=== PATIENT | male | born 1990 | race Hispanic/Latino ===

== ENCOUNTER 2018-06-29 13:37 | Emergency (ER) | payer SELFPAY ==
--- NOTE | 2018-06-29 15:05 | RAD REPORT ---
EXAM DESCRIPTION: RAD - Humerus Left - 06/29/2018 2:55 pm CLINICAL HISTORY: Persistent arm pain following trauma COMPARISON: None. FINDINGS: No fracture is identified. There is no dislocation or periosteal reaction noted. No forei gn body or other soft tissue abnormality. IMPRESSION: Negative left humerus examination.
--- NOTE | 2018-06-29 15:06 | RAD REPORT ---
EXAM DESCRIPTION: RAD - Elbow Left 3 View - 06/29/2018 2:55 pm CLINICAL HISTORY: Left elbow pain following trauma COMPARISON: None. FINDINGS: No fracture is identified and no elevated posterior fat pad. There is no dislocation or pe riosteal reaction noted. No air or foreign body in the soft tissues. Contusion or edema changes are present along the posterior and medial margin of the elbow joint. IMPRESSION: No fracture or acute bone or joint finding. Edema or contusion changes in the soft tissues posterior and medial elbow joint
--- NOTE | 2018-06-29 15:25 | EDPHYS ---
Physician Documentation [facility] Name: Subhash Mccracken Age: 27 yrs Sex: Male : 1990 Arrival Date: 06/29/2018 Time: 13:41 Bed 12 Private MD: ED Physician Jose F Meyer HPI: 06/29 14:06 This 27 yrs old Male presents to ER via Ambulatory with complaints of Arm Pain.snw 14:31 The patient or guardian complains of contusion, decreased range of motion, injury, snw pain, swelling. The complaints affect the left tricep, left elbow and palmar aspect of left forearm. Context: The problem was sustained at home, resulted from a crush injury, by a heavy object. Onset: The symptoms/episode began/occurred suddenly, 1 day(s) ago, and became worse and became persistent. Modifying factors: The symptoms are alleviated by remaining still, the symptoms are aggravated by movement, bending arm. Associated signs and symptoms: Pertinent positives: decreased range of motion, swelling, ecchymosis. Severity of symptoms: At their worst the symptoms were moderate, yesterday. The patient has not experienced similar symptoms in the past. It is unknown whether or not the patient has recently seen a physician. Historical: - Allergies: 13:54 No Known Allergies; aa5 - PMHx: 13:54 None; aa5 - PSHx: 13:54 Appendectomy; aa5 - Immunization history:: Flu vaccine is not up to date. - Social history:: Smoking status: Patient/guardian denies using tobacco. - Ebola Screening: : No symptoms or risks identified at this time. ROS: 14:31 Constitutional: Negative for fever, chills, and weight loss, Eyes: Negative for injury, snw pain, redness, and discharge, ENT: Negative for injury, pain, and discharge, Neck: Negative for injury, pain, and swelling, Cardiovascular: Negative for chest pain, palpitations, and edema, Respiratory: Negative for shortness of breath, cough, wheezing, and pleuritic chest pain, Abdomen/GI: Negative for abdominal pain, nausea, vomiting, diarrhea, and constipation, Back: Negative for injury and pain, : Negative for injury, bleeding, discharge, and swelling, Neuro: Negative for headache, weakness, numbness, tingling, and seizure. 14:31 MS/extremity: Positive for contusion, decreased range of motion, ecchymosis, swelling, tenderness, of the palmar aspect of left forearm and left elbow. 14:31 Skin: Positive for ecchymosis, of the palmar aspect of left forearm. Exam: 14:31 Constitutional: This is a well developed, well nourished patient who is awake, alert, snw and in no acute distress. Head/Face: Normocephalic, atraumatic. Eyes: Pupils equal round and reactive to light, extra-ocular motions intact. Lids and lashes normal. Conjunctiva and sclera are non-icteric and not injected. Cornea within normal limits. Periorbital areas with no swelling, redness, or edema. ENT: Nares patent. No nasal discharge, no septal abnormalities noted. Tympanic membranes are normal and external auditory canals are clear. Oropharynx with no redness, swelling, or masses, exudates, or evidence of obstruction, uvula midline. Mucous membranes moist. Neck: Trachea midline, no thyromegaly or masses palpated, and no cervical lymphadenopathy. Supple, full range of motion without nuchal rigidity, or vertebral point tenderness. No Meningismus. Chest/axilla: Normal chest wall appearance and motion. Nontender with no deformity. No lesions are appreciated. Cardiovascular: Regular rate and rhythm with a normal S1 and S2. No gallops, murmurs, or rubs. Normal PMI, no JVD. No pulse deficits. Respiratory: Lungs have equal breath sounds bilaterally, clear to auscultation and percussion. No rales, rhonchi or wheezes noted. No increased work of breathing, no retractions or nasal flaring. Abdomen/GI: Soft, non-tender, with normal bowel sounds. No distension or tympany. No guarding or rebound. No evidence of tenderness throughout. Back: No spinal tenderness. No costovertebral tenderness. Full range of motion. Neuro: Awake and alert, GCS 15, oriented to person, place, time, and situation. Cranial nerves II-XII grossly intact. Motor strength 5/5 in all extremities. Sensory grossly intact. Cerebellar exam normal. Normal gait. Psych: Awake, alert, with orientation to person, place and time. Behavior, mood, and affect are within normal limits. 14:31 Skin: Appearance: normal except for affected area, ecchymosis, noted on the, palmar aspect of left forearm, that are moderate, of the palmar aspect of left forearm. Vital Signs: 13:54 BP 123 / 85; Pulse 77; Resp 16 S; Temp 97.9(TE); Pulse Ox 99% on R/A; Weight 95.25 kg aa5 (R); Height 5 ft. 6 in. (167.64 cm) (R); Pain 6/10; 13:54 Body Mass Index 33.89 (95.25 kg, 167.64 cm) aa5 MDM: 14:07 Patient medically screened. snw 15:28 Data reviewed: vital signs, nurses notes. Data interpreted: Pulse oximetry: on room air snw is 99 %. Interpretation: normal. Counseling: I had a detailed discussion with the patient and/or guardian regarding: the historical points, exam findings, and any diagnostic results supporting the discharge/admit diagnosis, the presence of at least one elevated blood pressure reading (>120/80) during this emergency department visit, radiology results, the need for outpatient follow up, to return to the emergency department if symptoms worsen or persist or if there are any questions or concerns that arise at home. Special discussion: Based on the history and exam findings, there is no indication for further emergent testing or inpatient evaluation. I discussed with the patient/guardian the need to see the primary care provider for further evaluation of the symptoms. 06/29 14:30 Order name: Elbow Left 3 View XRAY; Complete Time: 15:06 snw 06/29 14:30 Order name: Humerus Left XRAY; Complete Time: 15:06 snw 06/29 15:13 Order name: Sling; Complete Time: 15:25 snw Administered Medications: 15:26 Drug: TORadol 60 mg Route: IM; Site: right deltoid; hb 15:49 Follow up: Response: No adverse reaction hb 15:26 Drug: [place] 5 mg-325 mg 1 tabs Route: PO; hb 15:26 Follow up: Response: Medication administered at discharge. hb Disposition: 06/30 07:02 Co-signature as Attending Physician, Jose F Meyer MD I agree with the assessment and ginny plan of care. Disposition: 06/29/18 15:25 Discharged to Home. Impression: Contusion of left forearm. - Condition is Stable. - Discharge Instructions: Hematoma, Elbow Contusion, Elbow Bursitis, Heat Therapy, How to Use a Sling. - Prescriptions for Diclofenac Sodium 75 mg Oral Tablet Sustained Release - take 1 tablet by ORAL route 2 times per day; 30 tablet. orphenadrine citrate 100 mg Oral Tablet Sustained Release - take 1 tablet by ORAL route 2 times per day As needed; 20 tablet. - Work release form, Medication Reconciliation Form, Thank You Letter, Antibiotic Education, Prescription Opioid Use form. - Follow up: Emergency Department; When: 1 - 2 days; Reason: Recheck today's complaints, Continuance of care, Re-evaluation by your physician. Follow up: Isidro Tolentino MD; When: 2 - 3 days; Reason: Recheck today's complaints, Continuance of care, Re-evaluation by your physician. Signatures: Dispatcher [employer] EDJose F Alfaro MD MD cha Therrien, Shelly, FEATHER EDGER-C FEATHER EDGER-Csnw Gracie Kong RN RN aa5 Tricia Bolaños RN RN hb Corrections: (The following items were deleted from the chart) 06/29 15:50 15:25 06/29/2018 15:25 Discharged to Home. Impression: Contusion of left forearm. hb Condition is Stable. Forms are Medication Reconciliation Form, Thank You Letter, Antibiotic Education, Prescription Opioid Use. Follow up: Emergency Department; When: 1 - 2 days; Reason: Recheck today's complaints, Continuance of care, Re-evaluation by your physician. Follow up: Isidro Tolentino; When: 2 - 3 days; Reason: Recheck today's complaints, Continuance of care, Re-evaluation by your physician. snw
--- NOTE | 2018-06-29 15:25 | ER ---
Nurse's Notes [facility] Name: Subhash Mccracken Age: 27 yrs Sex: Male : 1990 Arrival Date: 06/29/2018 Time: 13:41 Bed 12 Private MD: Diagnosis: Contusion of left forearm Presentation: 06/29 13:52 Presenting complaint: Patient states: "somebody fell on my arm on Friday". Pt reports aa5 bruising and swelling to left arm that he noticed on Friday. Transition of care: patient was not received from another setting of care. Onset of symptoms was June 2018. Risk Assessment: Do you want to hurt yourself or someone else? Patient reports no desire to harm self or others. Initial Sepsis Screen: Does the patient meet any 2 criteria? No. Patient's initial sepsis screen is negative. Does the patient have a suspected source of infection? No. Patient's initial sepsis screen is negative. Care prior to arrival: None. 13:52 Method Of Arrival: Ambulatory aa5 13:52 Acuity: RIGOBERTO 4 aa5 Historical: - Allergies: 13:54 No Known Allergies; aa5 - PMHx: 13:54 None; aa5 - PSHx: 13:54 Appendectomy; aa5 - Immunization history:: Flu vaccine is not up to date. - Social history:: Smoking status: Patient/guardian denies using tobacco. - Ebola Screening: : No symptoms or risks identified at this time. Screenin:58 Abuse screen: Denies threats or abuse. Denies injuries from another. Nutritional hb screening: No deficits noted. Tuberculosis screening: No symptoms or risk factors identified. Fall Risk None identified. Assessment: 14:00 General: Appears in no apparent distress. Behavior is calm, cooperative. Pain: Pain hb currently is 6 out of 10 on a pain scale. Neuro: Level of Consciousness is awake, alert, obeys commands, Oriented to person, place, time, situation. Cardiovascular: Capillary refill < 3 seconds Patient's skin is warm and dry. Respiratory: Airway is patent Respiratory effort is even, unlabored, Respiratory pattern is regular, symmetrical, Breath sounds are clear bilaterally. GI: No signs and/or symptoms were reported involving the gastrointestinal system. : No signs and/or symptoms were reported regarding the genitourinary system. EENT: No signs and/or symptoms were reported regarding the EENT system. Derm: Skin is intact, is healthy with good turgor. Musculoskeletal: bruising and swelling noted to left elbow and forearm Reports left arm pain. 15:00 Reassessment: Patient appears in no apparent distress at this time. Patient and/or hb family updated on plan of care and expected duration. Pain level reassessed. Patient is alert, oriented x 3, equal unlabored respirations, skin warm/dry/pink. Vital Signs: 13:54 BP 123 / 85; Pulse 77; Resp 16 S; Temp 97.9(TE); Pulse Ox 99% on R/A; Weight 95.25 kg aa5 (R); Height 5 ft. 6 in. (167.64 cm) (R); Pain 6/10; 13:54 Body Mass Index 33.89 (95.25 kg, 167.64 cm) aa5 ED Course: 13:41 Patient arrived in ED. mr 13:52 Arm band placed on. aa5 13:53 Triage completed. aa5 13:57 Tricia Bolaños, PATRICIA is Primary Nurse. hb 13:58 Patient has correct armband on for positive identification. Bed in low position. Call hb light in reach. 14:05 Norah Sevilla [facility]-C [facility]. snw 14:05 Jose F Meyer MD is Attending Physician. snw 14:56 Elbow Left 3 View XRAY In Process Unspecified. EDMS 14:56 Humerus Left XRAY In Process Unspecified. EDMS 15:14 Isidro Tolentino MD is Referral Physician. snw 15:50 No provider procedures requiring assistance completed. Patient did not have IV access hb during this emergency room visit. Administered Medications: 15:26 Drug: TORadol 60 mg Route: IM; Site: right deltoid; hb 15:49 Follow up: Response: No adverse reaction hb 15:26 Drug: [place] 5 mg-325 mg 1 tabs Route: PO; hb 15:26 Follow up: Response: Medication administered at discharge. hb Outcome: 15:25 Discharge ordered by . snw 15:50 Discharged to home ambulatory. hb 15:50 Condition: stable 15:50 Discharge instructions given to patient, Instructed on discharge instructions, follow up and referral plans. medication usage, Demonstrated understanding of instructions, follow-up care, medications, Prescriptions given X 2. 15:50 Patient left the ED. hb Signatures: Dispatcher [employer] EDMS Norah Sevilla, CARLEE-C [employer]LECTION SUPERVISOR-Kaseyw Chloe KrishnamurthyGracie, RN RN aa5 Tricia Bolaños RN RN hb Corrections: (The following items were deleted from the chart) 15:27 14:00 Musculoskeletal: Reports left arm pain hb hb
[2018-06-29] MEDS ORDERED: KETOROLAC 30 MG/ML INJ ONE (15:31)
[2018-06-29] MEDS ORDERED: HYDROCODONE/APAP 5/325 MG TAB ONE (15:31)
== END 2018-06-29 15:50 | disposition home or self-care (01) ==
LOC: ER 13:37
DX: S50.12XA Contusion of left forearm, initial encounter (principal); W03.XXXA Other fall on same level due to collision with another person, initial encounter; Y93.9 Activity, unspecified; Y92.009 Unspecified place in unspecified non-institutional (private) residence as the place of occurrence of the external cause
CPT/HCPCS: 96372; 99283

== ENCOUNTER 2019-06-05 21:51 | Emergency (ER) | payer SELFPAY ==
[2019-06-05 22:39] LABS: Absolute Lymphocytes (CBC) 3.5 K/uL (0.7-4.9); Basophils % 0.5 % (0-1.3); Hematocrit 44.4 % (39.6-49.0); Lymphocytes % 32.3 % (15.3-44.8); MPV 8.4 fL (7.6-11.3)
[2019-06-05 22:40] LABS: Protime INR 1.02
[2019-06-05 23:00] LABS: ALT/SGPT 55 U/L (12-78); AST/SGOT 20 U/L (15-37); Albumin 3.9 g/dL (3.4-5.0); Alkaline Phosphatase 87 U/L (45-117); BUN Blood Urea Nitrogen 13 mg/dL (7-18); Bicarbonate 27 mmol/L (21-32); Bilirubin Direct 0.2 mg/dL (0-0.2); Bilirubin Total 0.5 mg/dL (0.2-1.0); Glucose Level 97 mg/dL (74-106); Magnesium 2.1 mg/dL (1.8-2.4); NT PRO-BNP 15 pg/mL (<125); Potassium 3.7 mmol/L (3.5-5.1); Protein, Total 8.1 g/dL (6.4-8.2); Sodium Level 141 mmol/L (136-145); Troponin (Emerg Dept Use Only) < 0.02 ng/mL (0.0-0.045)
[2019-06-06 00:07] LABS: Barbiturates NEGATIVE (NEGATIVE); Benzodiazepines NEGATIVE (NEGATIVE); Cocaine NEGATIVE (NEGATIVE); METHAMPHETAM NEGATIVE (NEGATIVE); Methadone NEGATIVE (NEGATIVE); Opiates NEGATIVE (NEGATIVE); Phencyclidine NEGATIVE (NEGATIVE); THC Cannibis POSITIVE (NEGATIVE)
--- NOTE | 2019-06-06 00:32 | ER ---
Nurse's Notes [facility] Name: Subhash Mccracken Age: 28 yrs Sex: Male : 1990 Arrival Date: 06/05/2019 Time: 21:52 Bed 6 Private MD: Diagnosis: Other chest pain Presentation: 22:02 Chief complaint: Patient states: he has been having chest pain for 3 weeks it was worse bb yesterday he was feeling dizzy then this morning he felt worse still dizzy felt like he was going to pass out, he feels short of breath, he feels "pressure around my heart". Coronavirus screen: The patient has NOT traveled to [place] in the past 14 days. Proceed with normal triage procedures. Ebola Screen: No symptoms or risks identified at this time. 22:02 Method Of Arrival: Ambulatory bb 22:02 Initial Sepsis Screen: Does the patient meet any 2 criteria? No. Patient's initial bb sepsis screen is negative. Does the patient have a suspected source of infection? No. Patient's initial sepsis screen is negative. Risk Assessment: Do you want to hurt yourself or someone else? Patient reports no desire to harm self or others. 22:02 Acuity: RIGOBERTO 3 bb 22:25 Onset of symptoms was June 05, 2019. mg2 Historical: - Allergies: 22:05 No Known Allergies; bb - Home Meds: 22:05 None [Active]; bb - PMHx: 22:05 None; bb - PSHx: 22:05 Appendectomy; bb - Immunization history:: Adult Immunizations up to date. - Social history:: Smoking status: Patient denies any tobacco usage or history of. Patient uses alcohol, occasionally. street drugs, marijuana. Screenin:08 Abuse screen: Denies threats or abuse. Denies injuries from another. Nutritional mg2 screening: No deficits noted. Tuberculosis screening: No symptoms or risk factors identified. Fall Risk IV access (20 points). Assessment: 22:24 General: Appears in no apparent distress. comfortable, Behavior is calm, cooperative. mg2 Pain: Complains of pain in chest Pain does not radiate. Pain currently is 4 out of 10 on a pain scale. Quality of pain is described as aching, Pain began gradually. Neuro: Oriented to person, place, time, situation. Cardiovascular: Capillary refill < 3 seconds Patient's skin is warm and dry. Cardiovascular: Reports chest pain. Respiratory: Airway is patent Respiratory effort is even, unlabored, Respiratory pattern is regular, symmetrical. GI: No signs and/or symptoms were reported involving the gastrointestinal system. : No signs and/or symptoms were reported regarding the genitourinary system. EENT: No signs and/or symptoms were reported regarding the EENT system. Derm: Skin is intact, is healthy with good turgor, Skin is pink, warm \\T\\ dry. normal. Musculoskeletal: Circulation, motion, and sensation intact. Capillary refill < 3 seconds. 23:27 Reassessment: Patient appears in no apparent distress at this time. Patient and/or mg2 family updated on plan of care and expected duration. Pain level reassessed. Patient is alert, oriented x 3, equal unlabored respirations, skin warm/dry/pink. 06/05 00:26 Reassessment: Patient appears in no apparent distress at this time. Patient and/or mg2 family updated on plan of care and expected duration. Pain level reassessed. Patient is alert, oriented x 3, equal unlabored respirations, skin warm/dry/pink. 01:01 Reassessment: Patient states feeling better. mg2 Vital Signs: 22:02 Weight 99.79 kg (R); Height 5 ft. 6 in. (167.64 cm) (R); Pain 8/10; bb 22:08 BP 134 / 81; Pulse 81; Resp 18; Pulse Ox 98% on R/A; mg2 23:26 BP 123 / 86; Pulse 84; Resp 18; Pulse Ox 100% on R/A; mg2 06/05 00:27 BP 122 / 85; Pulse 86; Resp 18; Pulse Ox 100% on R/A; mg2 22:02 Body Mass Index 35.51 (99.79 kg, 167.64 cm) bb ED Course: 21:52 Patient arrived in ED. cl3 21:57 Tre Eason, PATRICIA is Primary Nurse. mg2 22:05 Triage completed. bb 22:05 Kameron Shaw MD is Attending Physician. tw4 22:05 Arm band placed on Patient placed in an exam room, on a stretcher, on personnel monitor, bb on pulse oximetry. EKG completed in triage. Results shown to MD. 22:21 XRAY Chest (1 view) In Process Unspecified. EDMS 22:24 No provider procedures requiring assistance completed. Inserted saline lock: 20 gauge mg2 in right antecubital area, using aseptic technique. Blood collected. Patient maintains SpO2 saturation greater than 95% on room air. 22:26 Patient has correct armband on for positive identification. campus monitor on. Pulse mg2 ox on. NIBP on. 03 01:01 IV discontinued, intact, bleeding controlled, No redness/swelling at site. Pressure mg2 dressing applied. Administered Medications: No medications were administered Outcome: 00:31 Discharge ordered by . luli 01:01 Discharged to home ambulatory, with family. mg2 01:01 Condition: stable 01:01 Discharge instructions given to patient, family, Instructed on discharge instructions, follow up and referral plans. Demonstrated understanding of instructions, follow-up care. 01:01 Patient left the ED. mg2 Signatures: Dispatcher [employer] EDMS Deanna Saavedra RN RN bb Kameron Shaw MD MD tw4 Tre Eason RN RN mg2 [address] Lewis cl3
--- NOTE | 2019-06-06 00:33 | EDPHYS ---
Physician Documentation [facility] Name: Subhash Mccracken Age: 28 yrs Sex: Male : 1990 Arrival Date: 06/05/2019 Time: 21:52 Bed 6 Private MD: ED Physician Kameron Shaw HPI: 22:25 This 28 yrs old Male presents to ER via Ambulatory with complaints of Chest tw4 Pain. 22:25 The patient or guardian reports chest pain that is located primarily in the anterior tw4 chest wall, left. The pain does not radiate. Associated signs and symptoms: The patient has no apparent associated signs or symptoms. The chest pain is described as squeezing. Duration: The patient or guardian reports a single episode, that is now resolved. Modifying factors: The symptoms are alleviated by nothing. the symptoms are aggravated by nothing. Severity of pain: At its worst the pain was moderate in the emergency department the pain has resolved. The patient has not experienced similar symptoms in the past. Historical: - Allergies: 22:05 No Known Allergies; bb - Home Meds: 22:05 None [Active]; bb - PMHx: 22:05 None; bb - PSHx: 22:05 Appendectomy; bb - Immunization history:: Adult Immunizations up to date. - Social history:: Smoking status: Patient denies any tobacco usage or history of. Patient uses alcohol, occasionally. street drugs, marijuana. ROS: 22:25 Constitutional: Negative for fever, chills, and weight loss, Eyes: Negative for injury, tw4 pain, redness, and discharge, Respiratory: Negative for shortness of breath, cough, wheezing, and pleuritic chest pain, Abdomen/GI: Negative for abdominal pain, nausea, vomiting, diarrhea, and constipation, Back: Negative for injury and pain, MS/Extremity: Negative for injury and deformity, Skin: Negative for injury, rash, and discoloration, Neuro: Negative for headache, weakness, numbness, tingling, and seizure. 22:25 Cardiovascular: Positive for chest pain, Negative for edema, orthopnea, palpitations, paroxysmal nocturnal dyspnea. Exam: 22:25 Constitutional: This is a well developed, well nourished patient who is awake, alert, tw4 and in no acute distress. Head/Face: Normocephalic, atraumatic. Chest/axilla: Normal chest wall appearance and motion. Nontender with no deformity. No lesions are appreciated. Cardiovascular: Regular rate and rhythm with a normal S1 and S2. No gallops, murmurs, or rubs. Normal PMI, no JVD. No pulse deficits. Respiratory: Lungs have equal breath sounds bilaterally, clear to auscultation and percussion. No rales, rhonchi or wheezes noted. No increased work of breathing, no retractions or nasal flaring. Abdomen/GI: Soft, non-tender, with normal bowel sounds. No distension or tympany. No guarding or rebound. No evidence of tenderness throughout. Back: No spinal tenderness. No costovertebral tenderness. Full range of motion. Skin: Warm, dry with normal turgor. Normal color with no rashes, no lesions, and no evidence of cellulitis. MS/ Extremity: Pulses equal, no cyanosis. Neurovascular intact. Full, normal range of motion. Neuro: Awake and alert, GCS 15, oriented to person, place, time, and situation. Cranial nerves II-XII grossly intact. Motor strength 5/5 in all extremities. Sensory grossly intact. Cerebellar exam normal. Normal gait. Vital Signs: 22:02 Weight 99.79 kg (R); Height 5 ft. 6 in. (167.64 cm) (R); Pain 8/10; bb 22:08 BP 134 / 81; Pulse 81; Resp 18; Pulse Ox 98% on R/A; mg2 23:26 BP 123 / 86; Pulse 84; Resp 18; Pulse Ox 100% on R/A; mg2 06/05 00:27 BP 122 / 85; Pulse 86; Resp 18; Pulse Ox 100% on R/A; mg2 22:02 Body Mass Index 35.51 (99.79 kg, 167.64 cm) bb MDM: 22:05 Patient medically screened. tw4 06/05 02:02 Differential diagnosis: acute myocardial infarction, acute pericarditis, anxiety, chest tw4 wall pain, costochondritis, esophagitis, gastroesophageal reflux disease (GERD). HEART Score: History: Slightly Suspicious (0), ECG: Normal (0), Age: < or = 45 years (0), Risk Factors: No Risk Factors Known (0), Troponin: < or = 1 x Normal Limit (0), Total Score = 0. Data reviewed: vital signs, nurses notes, lab test result(s), cardiac enzymes, CBC, hepatic panel, EKG, radiologic studies, plain films. Counseling: I had a detailed discussion with the patient and/or guardian regarding: the historical points, exam findings, and any diagnostic results supporting the discharge/admit diagnosis, lab results, radiology results. Special discussion: Based on the patient's history, exam, and Dx evaluation, there is no indication for emergent intervention or inpatient Tx. It is understood by the patient/guardian that if the Sx's persist or worsen they need to return immediately for re-evaluation. I discussed with the patient/guardian in detail that at this point there is no indication for admission to the hospital. It is understood, however, that if the symptoms persist or worsen the patient needs to return immediately for re-evaluation. 22:08 Order name: Basic Metabolic Panel; Complete Time: 00:07 mg2 06/05 00:07 Interpretation: Normal except: GFR 86. 22:08 Order name: CBC with Diff; Complete Time: 00:07 mg2 06/05 00:07 Interpretation: Within normal limits. 22:08 Order name: LFT's; Complete Time: 00:07 mg2 03 00:07 Interpretation: Normal except: GLOB 4.2; A/G 0.9. 22:08 Order name: Magnesium; Complete Time: 00:07 mg2 03 00:07 Interpretation: Within normal limits: MG 2.1. 22:08 Order name: NT PRO-BNP; Complete Time: 00:07 mg2 06/05 00:08 Interpretation: Within normal limits: NT PRO-BNP 15. 22:08 Order name: PT-INR; Complete Time: 00:07 mg2 06/05 00:08 Interpretation: Within normal limits: PT 12.0. 22:08 Order name: Troponin (emerg Dept Use Only); Complete Time: 00:07 mg2 22:08 Order name: EKG; Complete Time: 22: mg2 22:08 Order name: Cardiac monitoring; Complete [place]: : [facility] [place] Order name: EKG - Nurse/Tech; Complete Time: 22:23 mg2 22:08 Order name: IV Saline Lock; Complete Time: 22:23 mg2 22:08 Order name: Labs collected and sent; Complete Time: :23 mg2 22:08 Order name: O2 Per Protocol; Complete Time: 22:23 mg2 22:08 Order name: O2 Sat Monitoring; Complete Time: 22:23 mg2 22:10 Order name: XRAY Chest (1 view) tw4 22:10 Order name: EKG; Complete Time: 22:11 tw4 22:10 Order name: Urine Drug Screen; Complete Time: 00:07 tw4 06/05 00:07 Interpretation: Normal except: THC POSITIVE. tw4 22:26 Order name: Urine Dipstick--Ancillary (enter results) 22:10 Order name: Urine Dipstick-Ancillary (obtain specimen); Complete Time: :23 Administered Medications: No medications were administered Disposition: 06/06/19 00:31 Discharged to Home. Impression: Other chest pain. - Condition is Stable. - Discharge Instructions: Nonspecific Chest Pain. - Medication Reconciliation Form, Thank You Letter, Antibiotic Education, Prescription Opioid Use form. - Follow up: Private Physician; When: Upon discharge from the Emergency Department; Reason: Recheck today's complaints, Continuance of care, Re-evaluation by your physician. - Problem is new. - Symptoms have improved. Signatures: Dispatcher [employer] EDDeanna Singh RN RN Kameron Shaw MD MD 4 Tre Eason RN RN mg2 Corrections: (The following items were deleted from the chart) 22:16 22:09 Chest Single View+RAD.RAD.BRZ ordered. EDNC EDMS : 22:11 BASIC METABOLIC PANEL+C.LAB.BRZ ordered. EDMS EDMS 22:11 CBC+H.LAB.BRZ ordered. EDMS EDMS : 22:11 HEPATIC FUNCTION+C.LAB.BRZ ordered. EDMS EDMS : 22:11 MAGNESIUM+C.LAB.BRZ ordered. EDNC EDMS : 22:11 PROBNP+C.LAB.BRZ ordered. EDMS EDMS 22:11 PROTIME (+INR)+COAG.LAB.BRZ ordered. [facility] 22:11 TROPONIN (EMERG DEPT USE ONLY)+C.LAB.BRZ ordered. [facility] 22:10 Cardiac monitoring ordered. [place] [id number] 22:10 EKG - Nurse/Tech ordered. [place] [id number] 22:10 IV Saline Lock ordered. [place] [id number] 22:10 Labs collected and sent ordered. [place] [id number] 22:10 Oxygen Per Protocol ordered. [place] [id number] 22:10 O2 Sat Monitoring ordered. [place] [id number] 06/05 00:51 22:08 URINE DRUG SCREEN+CHEM UR.LAB.BRZ ordered. [facility] 06/05 01:01 00:31 06/06/2019 00:31 Discharged to Home. Impression: Other chest pain. Condition is mg2 Stable. Forms are Medication Reconciliation Form, Thank You Letter, Antibiotic Education, Prescription Opioid Use. Follow up: Private Physician; When: Upon discharge from the Emergency Department; Reason: Recheck today's complaints, Continuance of care, Re-evaluation by your physician. Problem is new. Symptoms have improved. tw4
[2019-06-06 00:49] LABS: Urine Blood NEGATIVE (NEG); Urine Glucose NEGATIVE (NEG); Urine Protein NEGATIVE (NEG); Urine Specific Gravity >1.030 (1.005-1.030); Urine pH 5.5 (5.0-7.0)
[2019-06-06 01:35] VITALS: O2SAT 100
[2019-06-06 01:37] VITALS: BP 122/85
--- NOTE | 2019-06-07 15:37 | EKG ---
Test Date: 2019-06-05 Test Time: 22:04:25 Online Marketer: MEASUREMENT RESULTS: Intervals: Rate: 70 MI: 142 QRSD: 94 QT: 378 QTc: 408 Ryan: P: 49 MI: 142 QRS: 58 T: 33 INTERPRETIVE STATEMENTS: Normal sinus rhythm Normal ECG Compared to ECG 01/18/2004 18:43:00 No significant changes Electronically Signed On 06-07-19 15:36:43 DOOR TO DOOR SALESMAN by Tomi Scherer
--- NOTE | 2019-06-23 13:56 | RAD REPORT ---
EXAM DESCRIPTION: RAD - Chest Single View - 06/11/2019 8:40 am CLINICAL HISTORY: CHEST PAIN TECHNIQUE: AP portable chest image was obtained 06/11/2019 8:40 am Exam was resubmitted for interpretation as the original dictation cannot be retrieved due to technica l malfunction. . FINDINGS: Lung volumes are low but clear of a peripheral mass or consolidation. Portable technique a nd body habitus accentuate the lung markings. No significant failure or volume overload. Heart and va sculature are normal. No measurable pleural effusion and no pneumothorax. No acute bony abnormality s een. No acute aortic findings suspected. IMPRESSION: No acute cardiopulmonary process.
== END 2019-06-06 01:01 | disposition home or self-care (01) ==
LOC: ER 21:51
DX: R07.89 Other chest pain (principal)
CPT/HCPCS: 36415; 71045; 80048; 80076; 80307; 81003; 83735; 83880; 84484; 85025; 85610; 93005; 99285

== ENCOUNTER 2020-04-02 18:43 | Emergency (ER) | payer SELFPAY ==
--- NOTE | 2020-04-02 21:02 | RAD REPORT ---
EXAM DESCRIPTION: RAD - Chest Pa And Lat (2 Views) - 04/02/2020 8:18 pm CLINICAL HISTORY: CHEST PAIN COMPARISON: Portable May TECHNIQUE: Frontal and lateral views of the chest were obtained. FINDINGS: The lungs are clear. Heart size is normal and central vasculature is within normal limit s. No pleural effusion or pneumothorax seen. No acute bony finding noted. No aortic abnormality. IMPRESSION: No acute cardiopulmonary process. No significant change from comparison study.
--- NOTE | 2020-04-02 21:05 | EDPHYS ---
Physician Documentation [facility] Name: Subhash Mccracken Age: 29 yrs Sex: Male : 1990 Arrival Date: 04/02/2020 Time: 18:43 Bed Waiting Private MD: ED Physician Kameron Shaw HPI: 04/02 21:06 This 29 yrs old Male presents to ER via Ambulatory with complaints of Chest tw4 Pain, Anxiety. 21:06 The patient or guardian reports chest pain that is located primarily in the anterior tw4 chest wall. The pain does not radiate. Associated signs and symptoms: The patient has no apparent associated signs or symptoms. The chest pain is described as aching. Duration: The patient or guardian reports a single episode. Modifying factors: The symptoms are alleviated by nothing. the symptoms are aggravated by nothing. Severity of pain: At its worst the pain was moderate. The patient has not experienced similar symptoms in the past. Historical: - Allergies: 19:29 No Known Allergies; ca1 - Home Meds: 19:29 None [Active]; ca1 - PMHx: 19:29 None; ca1 - PSHx: 19:30 Appendectomy; ca1 - Immunization history:: Adult Immunizations up to date, Flu vaccine is not up to date. - Social history:: Smoking status: Patient denies any tobacco usage or history of. Patient uses alcohol, only on a social basis. street drugs, marijuana. ROS: 21:06 Constitutional: Negative for fever, chills, and weight loss, Eyes: Negative for injury, tw4 pain, redness, and discharge, Respiratory: Negative for shortness of breath, cough, wheezing, and pleuritic chest pain, Abdomen/GI: Negative for abdominal pain, nausea, vomiting, diarrhea, and constipation, Back: Negative for injury and pain, MS/Extremity: Negative for injury and deformity, Skin: Negative for injury, rash, and discoloration. 21:06 Cardiovascular: Positive for chest pain, Negative for edema, orthopnea, palpitations, paroxysmal nocturnal dyspnea. 21:06 Psych: Positive for anxiety, Negative for depression, drug dependence, alcohol tw4 dependence, auditory hallucinations. Exam: 21:06 Constitutional: This is a well developed, well nourished patient who is awake, alert, tw4 and in no acute distress. Head/Face: Normocephalic, atraumatic. Chest/axilla: Normal chest wall appearance and motion. Nontender with no deformity. No lesions are appreciated. Cardiovascular: Regular rate and rhythm with a normal S1 and S2. No gallops, murmurs, or rubs. Normal PMI, no JVD. No pulse deficits. Respiratory: Lungs have equal breath sounds bilaterally, clear to auscultation and percussion. No rales, rhonchi or wheezes noted. No increased work of breathing, no retractions or nasal flaring. Abdomen/GI: Soft, non-tender, with normal bowel sounds. No distension or tympany. No guarding or rebound. No evidence of tenderness throughout. Back: No spinal tenderness. No costovertebral tenderness. Full range of motion. Skin: Warm, dry with normal turgor. Normal color with no rashes, no lesions, and no evidence of cellulitis. MS/ Extremity: Pulses equal, no cyanosis. Neurovascular intact. Full, normal range of motion. Neuro: Awake and alert, GCS 15, oriented to person, place, time, and situation. Cranial nerves II-XII grossly intact. Motor strength 5/5 in all extremities. Sensory grossly intact. Cerebellar exam normal. Normal gait. Vital Signs: 19:25 BP 134 / 99; Pulse 89; Resp 18 S; Temp 97.3(TE); Pulse Ox 99% on R/A; Weight 102.06 kg ca1 (R); Height 5 ft. 7 in. (170.18 cm) (R); Pain 6/10; 21:19 BP 129 / 86; Pulse 86; Resp 16 S; Pulse Ox 100% on R/A; ca1 19:25 Body Mass Index 35.24 (102.06 kg, 170.18 cm) ca1 MDM: 21:05 Patient medically screened. tw4 21:07 Data reviewed: vital signs, nurses notes. Counseling: I had a detailed discussion with tw4 the patient and/or guardian regarding: the historical points, exam findings, and any diagnostic results supporting the discharge/admit diagnosis, the need for outpatient follow up. Special discussion: I discussed with the patient/guardian in detail that at this point there is no indication for admission to the hospital. It is understood, however, that if the symptoms persist or worsen the patient needs to return immediately for re-evaluation. 04/02 19:36 Order name: Chest Pa And Lat (2 Views) XRAY ca1 04/02 19:30 Order name: EKG; Complete Time: 19:30 ca1 04/02 19:30 Order name: EKG - Nurse/Tech; Complete Time: 19:34 ca1 Administered Medications: No medications were administered Disposition: 04/02/20 21:05 Discharged to Home. Impression: Anxiety disorder, unspecified. - Condition is Stable. - Discharge Instructions: Panic Attacks, Nonspecific Chest Pain, Social Anxiety Disorder, Generalized Anxiety Disorder. - Medication Reconciliation Form, Thank You Letter, Antibiotic Education, Prescription Opioid Use form. - Follow up: Private Physician; When: Upon discharge from the Emergency Department; Reason: Recheck today's complaints, Continuance of care, Re-evaluation by your physician. - Problem is new. - Symptoms have improved. Signatures: Dispatcher [employer] Kameron Reed MD MD tw4 Breann Gautam RN RN ca1 Corrections: (The following items were deleted from the chart) 21:23 21:05 04/02/2020 21:05 Discharged to Home. Impression: Anxiety disorder, unspecified. ca1 Condition is Stable. Forms are Medication Reconciliation Form, Thank You Letter, Antibiotic Education, Prescription Opioid Use. Follow up: Private Physician; When: Upon discharge from the Emergency Department; Reason: Recheck today's complaints, Continuance of care, Re-evaluation by your physician. Problem is new. Symptoms have improved. tw4
--- NOTE | 2020-04-02 21:05 | ER ---
Nurse's Notes [facility] Name: Subhash Mccracken Age: 29 yrs Sex: Male : 1990 Arrival Date: 04/02/2020 Time: 18:43 Bed Waiting Private MD: Diagnosis: Anxiety disorder, unspecified Presentation: 04/02 19:25 Chief complaint: Patient states: Chest pain, comes and goes for couple months. Today ca1 about 1700, sitting in my truck and had really bad anxiety, I felt like I was going to . I started having chest pain, sharp on my left side that shoots to my L shoulder. I laid on the bed, thinking it will go away, but it did not and I felt my heart was pounding. On the way here, I kept feeling cold and hot, my L arm started feeling stiff and tingly. Coronavirus screen: Client denies travel out of the [place] in the last 14 days. At this time, the client does not indicate any symptoms associated with coronavirus-19. Ebola Screen: Patient negative for fever greater than or equal to 101.5 degrees Fahrenheit, and additional compatible Ebola Virus Disease symptoms Patient denies exposure to infectious person. Patient denies travel to an Ebola-affected area in the 21 days before illness onset. No symptoms or risks identified at this time. Initial Sepsis Screen: Does the patient meet any 2 criteria? No. Patient's initial sepsis screen is negative. Does the patient have a suspected source of infection? No. Patient's initial sepsis screen is negative. Risk Assessment: Do you want to hurt yourself or someone else? Patient reports no desire to harm self or others. Onset of symptoms was April 02, 2020. 19:25 Method Of Arrival: Ambulatory ca1 19:25 Acuity: RIGOBERTO 3 ca1 Historical: - Allergies: 19:29 No Known Allergies; ca1 - Home Meds: 19:29 None [Active]; ca1 - PMHx: 19:29 None; ca1 - PSHx: 19:30 Appendectomy; ca1 - Immunization history:: Adult Immunizations up to date, Flu vaccine is not up to date. - Social history:: Smoking status: Patient denies any tobacco usage or history of. Patient uses alcohol, only on a social basis. street drugs, marijuana. Screenin:19 Abuse screen: Denies threats or abuse. Denies injuries from another. Nutritional ca1 screening: No deficits noted. Tuberculosis screening: No symptoms or risk factors identified. Fall Risk None identified. Assessment: 19:34 Reassessment: Pt seen by Dr. Shaw in triage. ca1 21:19 General: Appears in no apparent distress. comfortable, Behavior is calm, cooperative, ca1 appropriate for age. Pain: Complains of pain in chest Pain radiates to left lateral anterior chest Pain currently is 7 out of 10 on a pain scale. Pain began 2 months Is intermittent. Neuro: Level of Consciousness is awake, alert, obeys commands, Oriented to person, place, time, situation. Cardiovascular: Heart tones S1 S2 present Capillary refill < 3 seconds Patient's skin is warm and dry. Rhythm is sinus rhythm. Respiratory: Airway is patent Respiratory effort is even, unlabored, Respiratory pattern is regular, symmetrical, Breath sounds are clear bilaterally. GI: Abdomen is round non-distended, Bowel sounds present X 4 quads. Abd is soft and non tender X 4 quads. : No signs and/or symptoms were reported regarding the genitourinary system. EENT: No signs and/or symptoms were reported regarding the EENT system. Derm: Skin is intact, is healthy with good turgor, Skin is pink, warm \T\ dry. Musculoskeletal: Circulation, motion, and sensation intact. Capillary refill < 3 seconds. Vital Signs: 19:25 BP 134 / 99; Pulse 89; Resp 18 S; Temp 97.3(TE); Pulse Ox 99% on R/A; Weight 102.06 kg ca1 (R); Height 5 ft. 7 in. (170.18 cm) (R); Pain 6/10; 21:19 BP 129 / 86; Pulse 86; Resp 16 S; Pulse Ox 100% on R/A; ca1 19:25 Body Mass Index 35.24 (102.06 kg, 170.18 cm) ca1 ED Course: 18:43 Patient arrived in ED. as 19:29 Triage completed. ca1 19:30 Arm band placed on right wrist. ca1 19:33 Kameron Shaw MD is Attending Physician. ca1 20:16 Chest Pa And Lat (2 Views) XRAY In Process Unspecified. EDMS 21:18 Breann Gautam, RN is Primary Nurse. ca1 21:19 Patient has correct armband on for positive identification. Pulse ox on. ca1 21:21 No provider procedures requiring assistance completed. Patient did not have IV access ca1 during this emergency room visit. Patient maintains SpO2 saturation greater than 95% on room air. Administered Medications: No medications were administered Outcome: 21:05 Discharge ordered by . luli 21:21 Discharged to home ambulatory. ca1 21:21 Condition: stable 21:21 Discharge instructions given to patient, Instructed on discharge instructions, follow up and referral plans. Demonstrated understanding of instructions, follow-up care. 21:23 Patient left the ED. ca1 Signatures: Dispatcher [employer] Magdalena Gonsales Terrence, MD MD tw4 Breann Gautam RN RN ca1
[2020-04-02 21:33] VITALS: TEMP 97.3
[2020-04-02 21:35] VITALS: BP 129/86; O2SAT 100
== END 2020-04-02 21:23 | disposition home or self-care (01) ==
LOC: ER 18:43
DX: F41.9 Anxiety disorder, unspecified (principal)
CPT/HCPCS: 71046; 93005; 99284

== ENCOUNTER 2021-02-08 19:41 | Emergency (ER) | payer SELFPAY ==
[2021-02-08] MEDS ORDERED: ACETAMINOPHEN 325 MG TABLET ONE (20:27)
[2021-02-08] MEDS ORDERED: TETANUS & DIPHTHERIA TOX,ADULT 0.5 ML VIAL ONE (20:27)
[2021-02-08] MEDS ORDERED: IBUPROFEN 400 MG TAB ONE (20:27)
--- NOTE | 2021-02-08 20:42 | RAD REPORT ---
EXAM DESCRIPTION: RAD - Hand Left 3 View - 02/08/2021 8:35 pm CLINICAL HISTORY: PAIN COMPARISON: No comparisons FINDINGS: No acute fracture. No malalignment. No significant focal degenerative changes. IMPRESSION: No acute osseous abnormality involving the left hand.
--- NOTE | 2021-02-08 21:38 | EDPHYS ---
Physician Documentation [facility] Name: Subhash Mccracken Age: 30 yrs Sex: Male : 1990 Arrival Date: 02/08/2021 Time: 19:44 Bed 10 Private MD: Jose F Hilario HPI: 02/08 20:05 This 30 yrs old Male presents to ER via Ambulatory with complaints of Hand cp Injury. 20:05 The patient or guardian reports injury, a laceration, clean. The complaints affect the cp dorsal side metacarpal head of left middle finger. 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 Patient reports he was wearing work gloves. Historical: - Allergies: 19:52 No Known Allergies; df1 - Home Meds: 19:52 None [Active]; df1 - PMHx: 19:52 None; df1 - PSHx: 19:52 Appendectomy; df1 - Immunization history:: Adult Immunizations not up to date, Client reports having NOT received the Covid vaccine. Last tetanus immunization: unknown. - Social history:: Smoking status: Patient reports the use of cigarette tobacco products, denies chronic smoking, but will smoke occasionally. ROS: 20:10 Skin: Positive for laceration(s), of the dorsal side of left hand. cp 20:10 Constitutional: Negative for fever. cp 20:10 Respiratory: Negative for cough. 20:10 Neuro: Negative for numbness. 20:10 All other systems are negative. Exam: 20:15 Constitutional: The patient appears in no acute distress, alert, awake, comfortable, cp well developed, well nourished. 20:15 Head/Face: Normocephalic, atraumatic. cp 20:15 Cardiovascular: Rate: normal. 20:15 Respiratory: the patient does not display signs of respiratory distress, Respirations: normal. 20:15 Musculoskeletal/extremity: Extremities: grossly normal except: noted in the dorsal side metacarpal head of left middle finger: laceration, ROM: full active range of motion, in the left hand, Perfusion: the extremity is normally perfused throughout, the left hand Sensation intact. Tendon exam: specific tendon testing normal through active and passive range of motion 20:15 Skin: injury, laceration(s), the wound is approximately 2 cm(s), of the dorsal side metacarpal head of left middle finger, that can be described as clean, no foreign body, linear, without bleeding. Vital Signs: 19:50 BP 125 / 76; Pulse 84; Resp 18; Temp 98.4; Pulse Ox 100% ; Weight 99.79 kg; Height 5 df1 ft. 7 in. (170.18 cm); Pain 3/10; 22:12 BP 132 / 77; Pulse 80; Resp 18; Temp 98.3; Pulse Ox 100% on R/A; Weight 95.25 kg; mr2 Height 5 ft. 7 in. (170.18 cm); Pain 3/10; 22:12 Body Mass Index 32.89 (95.25 kg, 170.18 cm) mr2 Laceration: 21:35 Wound Repair of 2cm ( 0.8in ) subcutaneous laceration to dorsal side metacarpal head of cp left middle finger. Linear shaped.. Distal neuro/vascular/tendon intact. Anesthesia: Wound infiltrated with 4 mls of 1% lidocaine w/ Epi. Wound prep: Moderate cleansing by me, Wound irrigation by me. Skin closed with 2 4-0 Prolene using interrupted sutures and sterile technique. Dressed with Bacitracin, 4x4's. Patient tolerated well. MDM: 19:58 Patient medically screened. ginny 21:00 Differential diagnosis: open fracture, closed fracture, contusion, simple laceration, cp tendon rupture. 21:36 Data reviewed: vital signs, nurses notes, radiologic studies, plain films. cp 21:36 Test interpretation: by ED physician or midlevel provider: plain radiologic studies. cp Counseling: I had a detailed discussion with the patient and/or guardian regarding: the historical points, exam findings, and any diagnostic results supporting the discharge/admit diagnosis, radiology results, to return to the emergency department if symptoms worsen or persist or if there are any questions or concerns that arise at home. Response to treatment: the patient's symptoms have markedly improved after treatment, and as a result, I will discharge patient. 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 Exp: mr2 08/18/2022. Lot #: [id number]. } Route: IM; Site: right deltoid; 20:39 Drug: Ibuprofen 800 mg Route: PO; mr2 21:25 Drug: Lidocaine-Epinephrine -1%: (1:100,000) 10 ml {Note: admin by Jose F SOTOMAYOR.} mr2 Volume: 20 ml; Route: Infiltration; Site: affected area; Disposition: 21:45 Chart complete. cp 02/09 11:22 Co-signature as Attending Physician, Jose F Meyer MD I agree with the assessment and ginny plan of care. Disposition Summary: 02/08/21 21:37 Discharge Ordered Location: Home cp Problem: new cp Symptoms: have improved cp Condition: Stable cp Diagnosis - Laceration without foreign body of left hand, initial encounter cp Followup: cp - With: Private Physician - When: 10 - 14 days - Reason: Staple/Suture removal Discharge Instructions: - Discharge Summary Sheet cp - Laceration Care, Adult cp - Sutured Wound Care cp Forms: - Medication Reconciliation Form cp - Thank You Letter cp - Antibiotic Education cp - Prescription Opioid Use cp Prescriptions: - Ibuprofen 800 mg Oral Tablet - take 1 tablet by ORAL route every 8 hours As needed take with food; 30 tablet; cp Refills: 0, Product Selection Permitted Signatures: Dispatcher [employer] Jose F Bass MD MD cha Page, Corey, PA PA cp Ben Taylor RN RN mr2 Thuy Ferrari df1 Corrections: (The following items were deleted from the chart) 00:43 00:41 Wound Repair of 2cm ( 0.8in ) subcutaneous laceration to dorsal side metacarpal cp head of middle finger. Linear shaped.. Distal neuro/vascular/tendon intact. Anesthesia: Wound infiltrated with 4 mls of 1% lidocaine w/ Epi. Wound prep: Moderate cleansing by me, Wound irrigation by me. Skin closed with 2 4-0 Prolene using interrupted sutures and sterile technique. Dressed with Bacitracin, 4x4's. Patient tolerated well. cp 00:45 02/08 21:35 Wound Repair of 2cm ( 0.8in ) subcutaneous laceration to dorsal side cp metacarpal head of middle finger. Linear shaped.. Distal neuro/vascular/tendon intact. Anesthesia: Wound infiltrated with 4 mls of 1% lidocaine w/ Epi. Wound prep: Moderate cleansing by me, Wound irrigation by me. Skin closed with 2 4-0 Prolene using interrupted sutures and sterile technique. Dressed with Bacitracin, 4x4's. Patient tolerated well. cp
--- NOTE | 2021-02-08 21:38 | ER ---
Nurse's Notes [facility] Name: Subhash Mccracken Age: 30 yrs Sex: Male : 1990 Arrival Date: 02/08/2021 Time: 19:44 Bed 10 Private MD: Diagnosis: Laceration without foreign body of left hand, initial encounter Presentation: 02/08 19:50 Chief complaint: Patient states: left hand injury. Coronavirus screen: Vaccine status: df1 Patient reports being unvaccinated. Client denies travel out of the [place] in the last 14 days. At this time, the client does not indicate any symptoms associated with coronavirus-19. Ebola Screen: Patient negative for fever greater than or equal to 101.5 degrees Fahrenheit, and additional compatible Ebola Virus Disease symptoms Patient denies exposure to infectious person. Patient denies travel to an Ebola-affected area in the 21 days before illness onset. Initial Sepsis Screen: Does the patient meet any 2 criteria? No. Patient's initial sepsis screen is negative. Does the patient have a suspected source of infection? No. Patient's initial sepsis screen is negative. Risk Assessment: Do you want to hurt yourself or someone else? Patient reports no desire to harm self or others. Onset of symptoms was February 08, 2021 at 16:00. 19:50 Method Of Arrival: Ambulatory df1 19:50 Acuity: RIGOBERTO 4 df1 19:52 Note Pt using a paint grinder stone mill and hit left hand above 3rd digit. Went through gloves. df1 Approx 1 cm laceration noted, no bleeding. Swelling noted. MSP's intact. Pain 3/10. Triage Assessment: 20:00 General: Appears in no apparent distress. well groomed, well developed, Behavior is mr2 calm, cooperative. Pain: Musculoskeletal: No deficits noted. Injury Description: Laceration. Historical: - Allergies: 19:52 No Known Allergies; df1 - Home Meds: 19:52 None [Active]; df1 - PMHx: 19:52 None; df1 - PSHx: 19:52 Appendectomy; df1 - Immunization history:: Adult Immunizations not up to date, Client reports having NOT received the Covid vaccine. Last tetanus immunization: unknown. - Social history:: Smoking status: Patient reports the use of cigarette tobacco products, denies chronic smoking, but will smoke occasionally. Screenin:00 Abuse screen: Denies threats or abuse. Denies injuries from another. Nutritional mr2 screening: No deficits noted. Tuberculosis screening: No symptoms or risk factors identified. Fall Risk None identified. Vital Signs: 19:50 BP 125 / 76; Pulse 84; Resp 18; Temp 98.4; Pulse Ox 100% ; Weight 99.79 kg; Height 5 df1 ft. 7 in. (170.18 cm); Pain 3/10; 22:12 BP 132 / 77; Pulse 80; Resp 18; Temp 98.3; Pulse Ox 100% on R/A; Weight 95.25 kg; mr2 Height 5 ft. 7 in. (170.18 cm); Pain 3/10; 22:12 Body Mass Index 32.89 (95.25 kg, 170.18 cm) mr2 ED Course: 19:44 Patient arrived in ED. ja2 19:52 Triage completed. df1 19:55 Jose F Faustin PA is PHCP. cp 19:55 Jose F Meyer MD is Attending Physician. cp 20:00 Arm band placed on. mr2 20:22 Ben Taylor, PATRICIA is Primary Nurse. mr2 20:35 XRAY Hand LEFT 3 View In Process Unspecified. EDMS 21:00 Bed in low position. Call light in reach. Side rails up X2. mr2 21:00 No provider procedures requiring assistance completed. Patient did not have IV access mr2 during this emergency room visit. 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 Exp: mr2 08/18/2022. Lot #: [id number]. } Route: IM; Site: right deltoid; 20:39 Drug: Ibuprofen 800 mg Route: PO; mr2 21:25 Drug: Lidocaine-Epinephrine -1%: (1:100,000) 10 ml {Note: admin by Jose F SOTOMAYOR.} mr2 Volume: 20 ml; Route: Infiltration; Site: affected area; Outcome: 21:37 Discharge ordered by . cp 21:50 Discharged to home ambulatory. mr2 21:50 Condition: stable 21:50 Discharge instructions given to patient, Instructed on discharge instructions, follow up and referral plans. 21:52 Patient left the ED. mr2 Signatures: Dispatcher [employer] EDMS Jose F Faustin PA PA cp Alexander, Jessica ja2 Reynard, Mike, RN RN mr2 Thuy Ferrari df1
[2021-02-08 22:12] VITALS: BP 125/76; TEMP 98.4; O2SAT 100
== END 2021-02-08 21:52 | disposition home or self-care (01) ==
LOC: ER 19:41
PROC: 0JQK0ZZ Repair Left Hand Subcutaneous Tissue and Fascia, Open Approach (ICD-10-PCS; principal; 2021-02-08)
DX: S61.213A Laceration without foreign body of left middle finger without damage to nail, initial encounter (principal); W31.89XA Contact with other specified machinery, initial encounter; Y92.89 Other specified places as the place of occurrence of the external cause; Y99.8 Other external cause status; Z23 Encounter for immunization; F17.210 Nicotine dependence, cigarettes, uncomplicated
CPT/HCPCS: 90471; 90714; 99283

== ENCOUNTER 2021-02-18 21:57 | Emergency (ER) | payer SELFPAY ==
[2021-02-18] MEDS ORDERED: HYDROCODONE/APAP 5/325 MG TAB ONE (23:47)
[2021-02-19] MEDS ORDERED: CLINDAMYCIN IV 150 MG/ML (4 mL) VIAL ONE (00:17)
--- NOTE | 2021-02-19 00:30 | EDPHYS ---
Physician Documentation [facility] Name: Subhash Mccracken Age: 30 yrs Sex: Male : 1990 Arrival Date: 02/18/2021 Time: 22:00 Bed 13 Private MD: ED Physician Magaly Wallace HPI: 02/18 23:42 This 30 yrs old Male presents to ER via Ambulatory with complaints of Finger pm1 Infection. 23:42 The patient or guardian reports pain, swelling. The complaints affect the dorsal aspect pm1 of knuckle of left middle finger. Context: The problem was sustained at work. Associated signs and symptoms: Pertinent negatives: fever, numbness distally, tingling distally. Severity of symptoms: in the emergency department the symptoms are actually worse. Patient was seen in the ER for laceration to left middle knuckle from bark grinder. Patient's laceration was repaired with sutures. Patient removed sutures himself 7 days after suture repair and noted that he wound did not close. Patient reported draining from wound starting approximately 2 days ago. Historical: - Allergies: 22:51 No Known Allergies; vg1 - Home Meds: 22:51 None [Active]; vg1 - PMHx: 22:51 None; vg1 - PSHx: 22:51 Appendectomy; vg1 - Immunization history:: Client reports having NOT received the Covid vaccine. - Social history:: Smoking status: Patient denies any tobacco usage or history of. Patient uses street drugs, marijuana. ROS: 23:42 Constitutional: Negative for fever, chills, and weight loss, Cardiovascular: Negative pm1 for chest pain, palpitations, and edema, Respiratory: Negative for shortness of breath, cough, wheezing, and pleuritic chest pain. 23:42 MS/extremity: Positive for pain, swelling, of the left middle knuckle, Negative for deformity. 23:42 Skin: Positive for drainage from left middle knuckle wound. 23:42 All other systems are negative. Exam: 23:42 Constitutional: This is a well developed, well nourished patient who is awake, alert, pm1 and in no acute distress. Head/Face: Normocephalic, atraumatic. 23:42 Cardiovascular: Exam negative for acute changes, Rate: normal, Rhythm: regular, Pulses: no pulse deficits are appreciated. 23:42 Respiratory: Exam negative for acute changes, respiratory distress, shortness of breath. 23:42 Skin: Appearance: normal except for affected area, Wound recheck: Suture laceration closure: no erythema, mild dehiscence, mild drainage, mild swelling. Vital Signs: 22:48 BP 124 / 82; Pulse 88; Resp 16; Temp 98.5; Pulse Ox 100% ; Weight 102.06 kg; Height 5 vg1 ft. 9 in. (175.26 cm); Pain 6/10; 02/19 00:00 BP 113 / 73; Pulse 81; Resp 14; Temp 98.3(O); Pulse Ox 96% ; Pain 6/10; fu 02/18 22:48 Body Mass Index 33.23 (102.06 kg, 175.26 cm) vg1 MDM: 02/18 23:26 Patient medically screened. pm1 23:42 ED course: Wound cleansed extensively with Hibiclens and Betadine and normal saline. pm1 Wound explored extensively. No abscess present. 02/19 00:27 Data reviewed: vital signs. Data interpreted: Pulse oximetry: on room air is 100 %. pm1 Interpretation: normal. Counseling: I had a detailed discussion with the patient and/or guardian regarding: the historical points, exam findings, and any diagnostic results supporting the discharge/admit diagnosis, the need for outpatient follow up, a hand specialist, to return to the emergency department if symptoms worsen or persist or if there are any questions or concerns that arise at home. Administered Medications: 02/18 23:53 Drug: HYDROcodone-acetaminophen 5 mg-325 mg 1 tabs Route: PO; fu 02/19 00:41 Follow up: Response: Pain is decreased fu 00:39 Drug: Clindamycin 600 mg Route: IM; Site: right gluteus; fu 00:40 Follow up: Response: Medication administered at discharge. fu Disposition Summary: 02/19/21 00:29 Discharge Ordered Location: Home pm1 Problem: new pm1 Symptoms: have improved pm1 Condition: Stable pm1 Diagnosis - Local infection of the skin and subcutaneous tissue, unspecified - Left middle pm1 knuckle Followup: pm1 - With: Emergency Department - When: As needed - Reason: Worsening of condition Followup: pm1 - With: Nikolai Tillman MD - When: 2 - 3 days - Reason: Recheck today's complaints, Continuance of care, Re-evaluation by your physician Discharge Instructions: - Discharge Summary Sheet pm1 - Wound Infection pm1 Forms: - Medication Reconciliation Form pm1 - Work release form pm1 - Thank You Letter pm1 - Antibiotic Education pm1 - Prescription Opioid Use pm1 Prescriptions: - Clindamycin HCl 300 mg Oral Capsule - take 1 capsule by ORAL route every 6 hours for 10 days; 40 capsule; Refills: 0, pm1 Product Selection Permitted Signatures: Rao Cloud, CAR HOP CAR HOP pm1 Kevin Bowen, RN RN Alix Marrero RN RN vg1 Corrections: (The following items were deleted from the chart) 00:31 00:29 Cellulitis of left finger pm1 pm1
--- NOTE | 2021-02-19 00:30 | ER ---
Nurse's Notes [facility] Name: Subhash Mccracken Age: 30 yrs Sex: Male : 1990 Arrival Date: 02/18/2021 Time: 22:00 Bed 13 Private MD: Diagnosis: Local infection of the skin and subcutaneous tissue, unspecified-Left middle knuckle Presentation: 02/18 22:48 Chief complaint: Patient states: Pt had stitches placed on L middle knuckle 02/08/21, vg1 states removed stitches on 02/15/21 and noticed that the area was starting to swell and yellow discharge was coming out. States sharp pain and pressure on Left middle knuckle. Denies fever, [place]. Coronavirus screen: Vaccine status: Patient reports being unvaccinated. Client denies travel out of the [place] in the last 14 days. Ebola Screen: Patient negative for fever greater than or equal to 101.5 degrees Fahrenheit, and additional compatible Ebola Virus Disease symptoms. Initial Sepsis Screen: Does the patient meet any 2 criteria? No. Patient's initial sepsis screen is negative. Does the patient have a suspected source of infection? No. Patient's initial sepsis screen is negative. Risk Assessment: Do you want to hurt yourself or someone else? Patient reports no desire to harm self or others. Onset of symptoms was February 15, 2021. 22:48 Method Of Arrival: Ambulatory vg1 22:48 Acuity: RIGOBERTO 3 vg1 Triage Assessment: 22:51 General: Appears in no apparent distress. comfortable, Behavior is calm, cooperative. vg1 Pain: Complains of pain in left hand. Historical: - Allergies: 22:51 No Known Allergies; vg1 - Home Meds: 22:51 None [Active]; vg1 - PMHx: 22:51 None; vg1 - PSHx: 22:51 Appendectomy; vg1 - Immunization history:: Client reports having NOT received the Covid vaccine. - Social history:: Smoking status: Patient denies any tobacco usage or history of. Patient uses street drugs, marijuana. Screenin:50 Abuse screen: Denies threats or abuse. Nutritional screening: No deficits noted. fu Tuberculosis screening: No symptoms or risk factors identified. Fall Risk None identified. Assessment: 23:48 General: Appears in no apparent distress. Behavior is calm, cooperative, appropriate fu for age, Denies fever, feeling ill, fatigue, chills. Pain: Complains of pain in right hand Pain does not radiate. Pain currently is 6 out of 10 on a pain scale. Quality of pain is described as throbbing, Pain began 2-3 days ago. Neuro: Level of Consciousness is awake, alert, obeys commands, Oriented to person, place, time, situation, Cena are equal bilaterally Moves all extremities. Gait is steady, Speech is normal, Facial symmetry appears normal. Cardiovascular: No deficits noted. Respiratory: Respiratory effort is even, unlabored, Respiratory pattern is regular. Derm: closed wound to left middle knuckle, swelling of the left hand noted. Vital Signs: 22:48 BP 124 / 82; Pulse 88; Resp 16; Temp 98.5; Pulse Ox 100% ; Weight 102.06 kg; Height 5 vg1 ft. 9 in. (175.26 cm); Pain 6/10; 02/19 00:00 BP 113 / 73; Pulse 81; Resp 14; Temp 98.3(O); Pulse Ox 96% ; Pain 6/10; fu 02/18 22:48 Body Mass Index 33.23 (102.06 kg, 175.26 cm) vg1 ED Course: 02/18 22:00 Patient arrived in ED. bp1 22:51 Triage completed. vg1 22:51 Arm band placed on. vg1 23:26 Rao Cloud NP is PHCP. pm1 23:26 Magaly Wallace MD is Attending Physician. pm1 23:44 Kevin Bowen, PATRICIA is Primary Nurse. fu 23:50 Patient has correct armband on for positive identification. Bed in low position. Call fu light in reach. Pulse ox on. NIBP on. 23:51 No provider procedures requiring assistance completed. fu 02/19 00:28 Nikolai Tillman MD is Referral Physician. pm1 00:42 Patient did not have IV access during this emergency room visit. fu Administered Medications: 02/18 23:53 Drug: HYDROcodone-acetaminophen 5 mg-325 mg 1 tabs Route: PO; fu 02/19 00:41 Follow up: Response: Pain is decreased fu 00:39 Drug: Clindamycin 600 mg Route: IM; Site: right gluteus; fu 00:40 Follow up: Response: Medication administered at discharge. fu Outcome: 00:29 Discharge ordered by . pm1 01:06 Discharged to home ambulatory. em 01:06 Condition: stable 01:06 Discharge instructions given to patient, Instructed on discharge instructions, follow up and referral plans. medication usage, Demonstrated understanding of instructions, follow-up care, medications, Prescriptions given X 1. 01:06 Patient left the ED. em Signatures: Regulo Marcus RN RN em Rao Cloud, CHRISTINA COMPUTERIZED TABLE CUTTER pm1 Kevin Bowen RN PATRICIA Alix Torres RN RN 1 Nasima Driver [facility] Corrections: (The following items were deleted from the chart) 02/18 23:50 23:48 Derm: closed wound to left middle kuckle fu fu 23:57 23:48 Derm: closed wound to left middle knuckle fu fu
[2021-02-19 01:20] VITALS: BP 113/73; TEMP 98.3; O2SAT 96
== END 2021-02-19 01:06 | disposition home or self-care (01) ==
LOC: ER 21:57
DX: L08.9 Local infection of the skin and subcutaneous tissue, unspecified (principal)
CPT/HCPCS: 96372; 99283; S0077

== ENCOUNTER 2022-04-07 22:03 | Emergency (ER) | payer SELFPAY ==
[2022-04-07] MEDS ORDERED: ASPIRIN 81 MG CHEWABLE TABLET ONE (22:34)
[2022-04-07] MEDS ORDERED: NA CHLORIDE 0.9% 500 ML ONE (22:34)
[2022-04-07] MEDS ORDERED: NA CHLORIDE 0.9% 1,000 ML ONE (22:34)
[2022-04-07 22:48] LABS: Absolute Lymphocytes (CBC) 0.8 K/uL (0.7-4.9); Hematocrit 45.4 % (39.6-49.0); Lymphocytes % 10.6 % (15.3-44.8); MCV 95.1 fL (80-100); MPV 7.5 fL (7.6-11.3); RBC Red Blood Cell Count 4.78 M/uL (4.33-5.43)
[2022-04-07 22:52] LABS: Protime INR 1.06
[2022-04-07 22:56] LABS: SARS-CoV-2 Antigen Rapid Res Negative (Negative)
[2022-04-07 23:11] LABS: Albumin 3.7 g/dL (3.4-5.0); Bilirubin Direct 0.1 mg/dL (0-0.2); Bilirubin Total 0.6 mg/dL (0.2-1.0); Protein, Total 7.4 g/dL (6.4-8.2); Troponin High Sensitivity 4.2 pg/mL (<58.9)
[2022-04-07 23:12] LABS: Magnesium 1.8 mg/dL (1.6-2.4); Potassium 3.7 mmol/L (3.5-5.1)
[2022-04-08] LABS: Urine Blood 2+ (Negative); Urine Glucose Negative (Negative); Urine Protein 1+ (Negative); Urine Specific Gravity >=1.030 (1.005-1.030)
--- NOTE | 2022-04-08 00:26 | ER ---
Nurse's Notes [facility] Name: Subhash Mccracken Age: 31 yrs Sex: Male : 1990 Arrival Date: 04/07/2022 Time: 22:04 Bed 6 Private MD: Diagnosis: Chest pain, unspecified;Essential (primary) hypertension Presentation: 04/07 22:11 Chief complaint: Patient states: he checks his blood pressure occasionally with his bb mother's blood pressure machine and it is always high today it was 229/162 today he also wasn't feeling well and is having chest pain intermittently for the last couple of hours, non-radiating, the pain is 3/10 and is worse when he is walking. Coronavirus screen: At this time, the client does not indicate any symptoms associated with coronavirus-19. Ebola Screen: No symptoms or risks identified at this time. Initial Sepsis Screen: Does the patient meet any 2 criteria? No. Patient's initial sepsis screen is negative. Does the patient have a suspected source of infection? No. Patient's initial sepsis screen is negative. Risk Assessment: Do you want to hurt yourself or someone else? Patient reports no desire to harm self or others. Onset of symptoms was April 07, 2022. 22:11 Method Of Arrival: Ambulatory bb 22:11 Acuity: RIGOBERTO 3 bb Triage Assessment: 22:16 General: Appears in no apparent distress. Behavior is calm, cooperative. Pain: bb Complains of pain in chest Pain does not radiate. Pain currently is 3 out of 10 on a pain scale. Is intermittent. Neuro: Level of Consciousness is awake, alert, obeys commands, Oriented to person, place, time, situation. Cardiovascular: Capillary refill < 3 seconds Patient's skin is warm and dry. Respiratory: Respiratory effort is even, unlabored, Respiratory pattern is regular. GI: No signs and/or symptoms were reported involving the gastrointestinal system. Derm: Skin is pink, warm \T\ dry. Musculoskeletal: Circulation, motion, and sensation intact. Historical: - Allergies: 22:16 No Known Allergies; bb - Home Meds: 22:16 None [Active]; bb - PMHx: 22:16 None; bb - PSHx: 22:16 Appendectomy; bb - Immunization history:: Client reports having NOT received the Covid vaccine. - Social history:: Smoking status: Patient denies any tobacco usage or history of. Patient uses alcohol, street drugs, marijuana. Screenin:41 [facility] ED Fall Risk Assessment (Adult) Score/Fall Risk Level 0 - 2 = Low Risk. Abuse as6 screen: Denies threats or abuse. Denies injuries from another. Nutritional screening: No deficits noted. Tuberculosis screening: No symptoms or risk factors identified. Assessment: 22:40 General: Appears in no apparent distress. Behavior is calm, cooperative. Pain: Denies as6 pain. Neuro: Level of Consciousness is awake, alert, obeys commands, Oriented to person, place, time, situation, Reports dizziness, headache. Cardiovascular: Reports chest pressure Capillary refill < 3 seconds Patient's skin is warm and dry. Respiratory: Respiratory effort is even, unlabored, Respiratory pattern is regular, symmetrical, Denies shortness of breath. Derm: Skin is intact, is healthy with good turgor. 23:27 Reassessment: Patient and/or family updated on plan of care and expected duration. Pain ha1 level reassessed. Patient is alert, oriented x 3, equal unlabored respirations, skin warm/dry/pink. 04/08 00:18 Reassessment: Patient and/or family updated on plan of care and expected duration. Pain ha1 level reassessed. Patient is alert, oriented x 3, equal unlabored respirations, skin warm/dry/pink. Patient denies pain at this time. Patient states symptoms have improved. Vital Signs: 04/07 22:11 BP 144 / 99; Pulse 89; Resp 16 S; Temp 99.2(O); Pulse Ox 97% on R/A; Weight 97.52 kg bb (R); Height 5 ft. 7 in. (170.18 cm) (R); Pain 3/10; 22:32 BP 133 / 91; Pulse 99; Resp 22 S; Pulse Ox 98% on R/A; as6 23:28 BP 135 / 91; Pulse 84; Resp 16 S; Pulse Ox 97% on R/A; ha1 04/08 00:19 BP 134 / 91; Pulse 76; Resp 16 S; Pulse Ox 99% on R/A; ha1 00:34 BP 127 / 86; Pulse 79; Resp 22 S; Pulse Ox 98% on R/A; as6 04/07 22:11 Body Mass Index 33.67 (97.52 kg, 170.18 cm) bb ED Course: 04/07 22:04 Patient arrived in ED. ja2 22:16 Triage completed. bb 22:16 Arm band placed on Patient placed in waiting room, Patient notified of wait time. EKG bb completed in triage. Results shown to MD. 22:20 Gurpreet Acosta, RN is Primary Nurse. as6 22:25 Jose F Meyer MD is Attending Physician. ginny 22:30 Inserted saline lock: 20 gauge in right antecubital area, using aseptic technique. as6 Blood collected. 22:40 SARS RAPID Sent. as6 22:40 Lipase Sent. as6 22:40 Basic Metabolic Panel Sent. as6 22:40 CBC with Diff Sent. as6 22:40 LFT's Sent. as6 22:40 Troponin HS Sent. as6 22:40 PT-INR Sent. as6 22:40 NT PRO-BNP Sent. as6 22:40 Magnesium Sent. as6 22:42 Placed in gown. Bed in low position. Call light in reach. Side rails up X2. Adult w/ as6 patient. Client placed on continuous cardiac and pulse oximetry monitoring. NIBP monitoring applied. Warm blanket given. 22:43 XRAY Chest (1 view) In Process Unspecified. EDMS 04/08 00:00 UDS Sent. as6 00:25 Sukhjinder Sanchez MD is Referral Physician. ginny 00:34 No provider procedures requiring assistance completed. as6 00:46 IV discontinued, intact, bleeding controlled, No redness/swelling at site. Pressure ha1 dressing applied. Administered Medications: 04/07 22:35 Drug: Aspirin Chewable Tablet 162 mg Route: PO; as6 04/08 00:35 Follow up: Response: No adverse reaction as6 04/07 22:39 Drug: NS 0.9% 500 ml Route: IV; Rate: bolus; Site: right antecubital; ha1 04/08 00:35 Follow up: Response: No adverse reaction; IV Status: Completed infusion; IV Intake: as6 500ml 04/07 22:49 Drug: NS 0.9% 1000 ml Route: IV; Rate: 125 ml/hr; Site: right antecubital; ha1 04/08 00:35 Follow up: Response: No adverse reaction; IV Status: Order to discontinue infusion; IV as6 Intake: 200ml 04/07 22:51 Not Given (Duplicate Order): Aspirin Chewable Tablet 324 mg PO once; 81 mg tablets x 4 as6 04/08 00:35 Drug: ToPROL XL (metoprolol SUCCINATE) 25 mg Route: PO; ha1 00:47 Follow up: Response: No adverse reaction ha1 Medication: 04/07 22:42 VIS not applicable for this client. as6 Intake: 04/08 00:35 IV: 500ml; Total: 500ml. as6 00:35 IV: 200ml; Total: 700ml. as6 Outcome: 00:26 Discharge ordered by . ginny 00:45 Discharged to home ambulatory, with family. ha1 00:45 Condition: stable 00:45 Discharge instructions given to patient, family, Instructed on discharge instructions, follow up and referral plans. medication usage, Demonstrated understanding of instructions, follow-up care, medications, Prescriptions given X 1. 00:46 Patient left the ED. ha1 Signatures: Dispatcher [employer] EDMS Jose F Meyer MD MD cha Ballard, Brenda, RN RN Gifty Patel Ashby, RN RN as6 Anuja Beach RN RN ha1
--- NOTE | 2022-04-08 00:27 | EDPHYS ---
Physician Documentation [facility] Name: Subhash Mccracken Age: 31 yrs Sex: Male : 1990 Arrival Date: 04/07/2022 Time: 22:04 Bed 6 Private MD: BETSY Physician Jose F Meyer HPI: 04/08 00:20 This 31 yrs old Male presents to ER via Ambulatory with complaints of High ginny Blood Pressure, Chest Pain. 00:20 The patient has elevated blood pressure and discovered this at home. Onset: The ginny symptoms/episode began/occurred 1 day(s) ago. Modifying factors: The symptoms are aggravated by activity, The symptoms are alleviated by remaining still. Associated signs and symptoms: Pertinent positives: weakness. Severity of symptoms: At its worst the blood pressure was mild, in the emergency department the blood pressure is improved, mildly. The patient has experienced similar episodes in the past, several times. Historical: - Allergies: 04/07 22:16 No Known Allergies; bb - Home Meds: 22:16 None [Active]; bb - PMHx: 22:16 None; bb - PSHx: 22:16 Appendectomy; bb - Immunization history:: Client reports having NOT received the Covid vaccine. - Social history:: Smoking status: Patient denies any tobacco usage or history of. Patient uses alcohol, street drugs, marijuana. ROS: 04/08 00:21 Constitutional: Negative for fever, chills, and weight loss, Eyes: Negative for injury, ginny pain, redness, and discharge, ENT: Negative for injury, pain, and discharge, Neck: Negative for injury, pain, and swelling, Respiratory: Negative for shortness of breath, cough, wheezing, and pleuritic chest pain, Abdomen/GI: Negative for abdominal pain, nausea, vomiting, diarrhea, and constipation, Back: Negative for injury and pain, : Negative for injury, bleeding, discharge, and swelling, MS/Extremity: Negative for injury and deformity, Skin: Negative for injury, rash, and discoloration, Neuro: Negative for headache, weakness, numbness, tingling, and seizure, Psych: Negative for depression, anxiety, suicide ideation, homicidal ideation, and hallucinations, Allergy/Immunology: Negative for hives, rash, and allergies, Endocrine: Negative for neck swelling, polydipsia, polyuria, polyphagia, and marked weight changes, Hematologic/Lymphatic: Negative for swollen nodes, abnormal bleeding, and unusual bruising. Cardiovascular: Positive for chest pain, palpitations, Negative for edema, orthopnea. Exam: 00:21 Constitutional: This is a well developed, well nourished patient who is awake, alert, ginny and in no acute distress. Head/Face: Normocephalic, atraumatic. Eyes: Pupils equal round and reactive to light, extra-ocular motions intact. Lids and lashes normal. Conjunctiva and sclera are non-icteric and not injected. Cornea within normal limits. Periorbital areas with no swelling, redness, or edema. ENT: Nares patent. No nasal discharge, no septal abnormalities noted. Tympanic membranes are normal and external auditory canals are clear. Oropharynx with no redness, swelling, or masses, exudates, or evidence of obstruction, uvula midline. Mucous membranes moist. Neck: Trachea midline, no thyromegaly or masses palpated, and no cervical lymphadenopathy. Supple, full range of motion without nuchal rigidity, or vertebral point tenderness. No Meningismus. Chest/axilla: Normal chest wall appearance and motion. Nontender with no deformity. No lesions are appreciated. Cardiovascular: Regular rate and rhythm with a normal S1 and S2. No gallops, murmurs, or rubs. Normal PMI, no JVD. No pulse deficits. Respiratory: Lungs have equal breath sounds bilaterally, clear to auscultation and percussion. No rales, rhonchi or wheezes noted. No increased work of breathing, no retractions or nasal flaring. Abdomen/GI: Soft, non-tender, with normal bowel sounds. No distension or tympany. No guarding or rebound. No evidence of tenderness throughout. Back: No spinal tenderness. No costovertebral tenderness. Full range of motion. Male : Normal genitalia with no discharge or lesions. Skin: Warm, dry with normal turgor. Normal color with no rashes, no lesions, and no evidence of cellulitis. MS/ Extremity: Pulses equal, no cyanosis. Neurovascular intact. Full, normal range of motion. Neuro: Awake and alert, GCS 15, oriented to person, place, time, and situation. Cranial nerves II-XII grossly intact. Motor strength 5/5 in all extremities. Sensory grossly intact. Cerebellar exam normal. Normal gait. Psych: Awake, alert, with orientation to person, place and time. Behavior, mood, and affect are within normal limits. 00:21 ECG was reviewed by the Attending Physician. Vital Signs: 04/07 22:11 BP 144 / 99; Pulse 89; Resp 16 S; Temp 99.2(O); Pulse Ox 97% on R/A; Weight 97.52 kg bb (R); Height 5 ft. 7 in. (170.18 cm) (R); Pain 3/10; 22:32 BP 133 / 91; Pulse 99; Resp 22 S; Pulse Ox 98% on R/A; as6 23:28 BP 135 / 91; Pulse 84; Resp 16 S; Pulse Ox 97% on R/A; ha1 04/08 00:19 BP 134 / 91; Pulse 76; Resp 16 S; Pulse Ox 99% on R/A; ha1 00:34 BP 127 / 86; Pulse 79; Resp 22 S; Pulse Ox 98% on R/A; as6 04/07 22:11 Body Mass Index 33.67 (97.52 kg, 170.18 cm) bb MDM: 04/07 22:25 Patient medically screened. ginny 04/08 00:22 Differential diagnosis: abnormal EKG, acute myocardial infarction, acute pericarditis, ginny anxiety, chest wall pain, Malignant HTN. HEART Score: History: Slightly Suspicious (0), ECG: Normal (0), Age: < or = 45 years (0), Risk Factors: 1 or 2 risk factors (1), [Hypertension] [+ Family HX] Troponin: < or = 1 x Normal Limit (0), Total Score = 1. The patient's deep vein thrombosis risk score was calculated as follows: Total Score: 0. This patient was found to be at low risk for a deep vein thrombosis by using the Well's assessment criteria. The patient's pulmonary embolism risk score was calculated as follows: Total Score: 0-2 points. This patient was found to be at low risk for a pulmonary embolism by using the Well's assessment criteria. KHOI Risk Score: TOTAL SCORE = 0. Data reviewed: vital signs, nurses notes, lab test result(s), EKG, radiologic studies, plain films. Data interpreted: desk monitor: rate is 76 beats/min, rhythm is normal sinus rhythm, Pulse oximetry: on room air is 99 %. Test interpretation: by ED physician or midlevel provider: ECG, plain radiologic studies. Counseling: I had a detailed discussion with the patient and/or guardian regarding: the presence of at least one elevated blood pressure reading (>120/80) during this emergency department visit, lab results, radiology results, the need for outpatient follow up, for definitive care, a senior power scheduler, a family practitioner. 04/07 22:28 Order name: Basic Metabolic Panel; Complete Time: 23:54 [facility] 04/07 22:28 Order name: CBC with Diff; Complete Time: 23:54 [facility] 04/07 22:28 Order name: LFT's; Complete Time: 23:54 [facility] 04/07 22:28 Order name: Magnesium; Complete Time: 23:54 [facility] 04/07 22:28 Order name: NT PRO-BNP; Complete Time: 23:54 [facility] 04/07 22:28 Order name: PT-INR; Complete Time: 23:54 [facility] 04/07 22:28 Order name: Troponin HS; Complete Time: 23:54 [facility] 04/07 22:28 Order name: XRAY Chest (1 view) [facility] 04/07 22:28 Order name: Lipase; Complete Time: 23:54 [facility] 04/07 22:28 Order name: UDS [facility] 04/07 22:28 Order name: SARS RAPID; Complete Time: 23:54 [facility] 04/08 00:01 Order name: Urine Dipstick-Ancillary; Complete Time: 00:16 EDMS 04/07 22:28 Order name: EKG; Complete Time: 22:29 [facility] 04/07 22:28 Order name: Cardiac monitoring; Complete Time: 22:32 [facility] 04/07 22:28 Order name: EKG - Nurse/Tech; Complete Time: 22:32 [facility] 04/07 22:28 Order name: IV Saline Lock; Complete Time: 22:40 [facility] 04/07 22:28 Order name: Labs collected and sent; Complete Time: 22:40 [facility] 04/07 22:28 Order name: O2 Per Protocol; Complete Time: 22:32 [facility] 04/07 22:28 Order name: O2 Sat Monitoring; Complete Time: 22:32 [facility] 04/07 22:28 Order name: Urine Dipstick-Ancillary (obtain specimen); Complete Time: 00:00 [facility] EC:21 Rate is 84 beats/min. QRS [place] is Normal. [place] interval is normal. QRS interval is ginny normal. QT interval is normal. No Q waves. T waves are Normal. No ST changes noted. Clinical impression: Normal ECG and No evidence of ischemia. Interpreted by me. Reviewed by me. Administered Medications: 04/07 22:35 Drug: Aspirin Chewable Tablet 162 mg Route: PO; as6 04/08 00:35 Follow up: Response: No adverse reaction as6 04/07 22:39 Drug: NS 0.9% 500 ml Route: IV; Rate: bolus; Site: right antecubital; 04/08 00:35 Follow up: Response: No adverse reaction; IV Status: Completed infusion; IV Intake: as6 500ml 04/07 22:49 Drug: NS 0.9% 1000 ml Route: IV; Rate: 125 ml/hr; Site: right antecubital; 04/08 00:35 Follow up: Response: No adverse reaction; IV Status: Order to discontinue infusion; IV as6 Intake: 200ml 04/07 22:51 Not Given (Duplicate Order): Aspirin Chewable Tablet 324 mg PO once; 81 mg tablets x 4 04/08 00:35 Drug: ToPROL XL (metoprolol SUCCINATE) 25 mg Route: PO; ha 00:47 Follow up: Response: No adverse reaction ha1 Disposition Summary: 04/08/22 00:26 Discharge Ordered Location: Home ginny Problem: new ginny Symptoms: have improved ginny Condition: Stable ginny Diagnosis - Chest pain, unspecified ginny - Essential (primary) hypertension ginny Followup: ginny - With: Private Physician - When: 1 - 2 days - Reason: Recheck today's complaints, Continuance of care, Re-evaluation by your physician Followup: ginny - With: Sukhjinder Sanchez MD - When: 2 - 3 days - Reason: Recheck today's complaints, Re-evaluation by your physician Discharge Instructions: - Discharge Summary Sheet ginny - Nonspecific Chest Pain, Adult ginny - Hypertension, Adult ginny - Nonspecific Chest Pain, Adult, [id number] ginny - Hypertension, Adult, [id number] ginny - How to Take Your Blood Pressure, [id number] ginny - Aspirin and Your Heart ginny - Managing Your Hypertension ginny Forms: - Medication Reconciliation Form ginny - Thank You Letter ginny - Antibiotic Education ginny - Prescription Opioid Use ginny Prescriptions: - Toprol XL 25 mg Oral Tablet - take 1 tablet by ORAL route once daily; 20 tablet; Refills: 0, Product ginny Selection Permitted Signatures: Dispatcher [employer] Jose F Bass MD MD cha Ballard, Brenda RN RN Gurpreet Gerber RN RN as6 Anuja Beach RN RN ha1
[2022-04-08] MEDS ORDERED: METOPROLOL TAR 25 MG TAB ONE (00:40)
[2022-04-08 00:59] LABS: Barbiturates NEGATIVE (NEGATIVE); Benzodiazepines NEGATIVE (NEGATIVE); Cocaine NEGATIVE (NEGATIVE); METHAMPHETAM NEGATIVE (NEGATIVE); Methadone NEGATIVE (NEGATIVE); Opiates NEGATIVE (NEGATIVE); Phencyclidine NEGATIVE (NEGATIVE); THC Cannibis POSITIVE (NEGATIVE)
[2022-04-08 01:13] VITALS: TEMP 99.2
[2022-04-08 01:27] VITALS: BP 127/86; O2SAT 98
--- NOTE | 2022-04-08 10:51 | RAD REPORT ---
EXAM DESCRIPTION: RAD - Chest Single View - 04/07/2022 10:41 pm CLINICAL HISTORY: The patient is 31 years old and is Male; CHEST PAIN TECHNIQUE: Frontal view of the chest. COMPARISON: No relevant prior studies available. FINDINGS: Lungs: Mildly prominent interstitial markings. No consolidation. Pleural space: Unremarkable. No pneumothorax. Heart: Unremarkable. Mediastinum: Unremarkable. Bones/joints: Unremarkable. IMPRESSION: Mildly prominent interstitial markings. No consolidation. 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 The interpreting radiologist is fully responsible for the content of the report.
--- NOTE | 2022-04-09 08:34 | EKG ---
Test Date: 2022-04-07 Test Time: 22:27:47 Bench Assembler Electrical: MEASUREMENT RESULTS: Intervals: Rate: 84 ID: [id number] QRSD: 88 QT: 348 QTc: 411 [place]: P: 47 ID: [id number] QRS: 83 T: 38 INTERPRETIVE STATEMENTS: Normal sinus rhythm Normal ECG Compared to ECG 04/02/2020 19:33:12 No significant changes Electronically Signed On 04-09-22 08:31:25 RESTORATION OFFICER by Sukhjinder Sanchez
== END 2022-04-08 00:46 | disposition home or self-care (01) ==
LOC: ER 22:03
DX: I10 Essential (primary) hypertension (principal); Z20.822 Contact with and (suspected) exposure to COVID-19
CPT/HCPCS: 36415; 71045; 80048; 80076; 80307; 81003; 83690; 83735; 83880; 84484; 85025; 85610; 87811; 93005; 96360; 96361; 99284; J7030; J7040

== ENCOUNTER 2022-10-04 20:54 | Emergency (ER) | payer SELFPAY ==
[2022-10-04] MEDS ORDERED: TETRACAINE HCL 0.5% 4ML OPTH ONE ×2 (21:15→21:41)
[2022-10-04] MEDS ORDERED: FLUORESCEIN SODIUM 1 MG/WRAP ONE ×2 (21:15→21:41)
--- NOTE | 2022-10-04 21:21 | ER ---
Nurse's Notes [facility] Name: Subhash Mccracken Age: 32 yrs Sex: Male : 1990 Arrival Date: 10/04/2022 Time: 20:54 Bed 10 Private MD: Diagnosis: Injury of conjunctiva and corneal abrasion without foreign body, left eye;Unspecified acute conjunctivitis, left eye Presentation: 10/04 21:09 Chief complaint: Patient states: left eye irritation x 2 days. Coronavirus screen: Vaccine status: Patient reports being unvaccinated. Ebola Screen: Patient negative for fever greater than or equal to 101.5 degrees Fahrenheit, and additional compatible Ebola Virus Disease symptoms. Initial Sepsis Screen: Does the patient meet any 2 criteria? No. Patient's initial sepsis screen is negative. Does the patient have a suspected source of infection? No. Patient's initial sepsis screen is negative. Risk Assessment: Do you want to hurt yourself or someone else? Patient reports no desire to harm self or others. 21:09 Method Of Arrival: Ambulatory 21:09 Acuity: RIGOBERTO 4 kl 21:43 Onset of symptoms was October 04, 2022. Triage Assessment: 21:10 General: Appears in no apparent distress. Behavior is calm, cooperative. Pain: Complains of pain in left eye. EENT: Eyes are tearing on inner aspect of conjunctiva of left eye Sclera/Cornea are reddened in iris of left eye and inner aspect of conjunctiva of left eye. Neuro: No deficits noted. Cardiovascular: No deficits noted. Respiratory: No deficits noted. GI: No deficits noted. No signs and/or symptoms were reported involving the gastrointestinal system. : No deficits noted. No signs and/or symptoms were reported regarding the genitourinary system. Derm: No deficits noted. No signs and/or symptoms reported regarding the dermatologic system. Historical: - Allergies: 21:10 No Known Allergies; kl - Home Meds: 21:10 None [Active]; kl - PMHx: 21:10 None; kl - PSHx: 21:10 None; kl - Immunization history:: Adult Immunizations not immunized. - Social history:: Smoking status: Patient denies any tobacco usage or history of. - Family history:: not pertinent. Screenin:[facility] (Adult) History of falling in the last 3 months, rv including since admission No falls in past 3 months (0 pts) Confusion or Disorientation No (0 pts) Intoxicated or Sedated No (0 pts) Impaired Gait No (0 pts) Mobility Assist Device Used No (0 pt) Altered Elimination No (0 pt) Score/Fall Risk Level 0 - 2 = Low Risk Oriented to surroundings, Maintained a safe environment, Educated pt \T\ family on fall prevention, incl call for assistance when getting out of bed, Assessed \T\ reinforced patient's understanding of fall precautions, Provided non-skid footwear, Hourly rounding (assess needs \T\ fall precautionary measures) done, Used ambulatory aids as needed (educated on \T\ assisted with), Used gait belt as appropriate. Abuse screen: Denies threats or abuse. Denies injuries from another. Nutritional screening: No deficits noted. Tuberculosis screening: No symptoms or risk factors identified. Assessment: 21:42 General: Appears in no apparent distress. Behavior is calm, cooperative. EENT: Eyes rv REDNESS AND ITCHING OF THE LEFT EYE. Vital Signs: 21:09 BP 132 / 89; Pulse 93; Resp 18; Temp 97(TE); Pulse Ox 98% on R/A; Weight 99.79 kg (R); kl Height 5 ft. 8 in. ; Pain 7/10; 21:09 Body Mass Index 33.45 (99.79 kg, 172.72 cm) kl 21:09 Pain Scale: Adult ED Course: 20:57 Patient arrived in ED. ag3 20:58 Rusty Gomes MD is Attending Physician. sp4 21:00 Arm band placed on right wrist. rv 21:10 Triage completed. kl 21:20 Subhash Godfrey MD is Referral Physician. sp4 21:42 Patient has correct armband on for positive identification. rv 21:43 No provider procedures requiring assistance completed. Patient did not have IV access rv during this emergency room visit. Administered Medications: 21:34 Drug: Tetracaine Ophthalmic Drops 0.5 % 1 drops Route: Ophthalmic; Site: left eye; kl 21:41 Follow up: Response: No adverse reaction rv 21:40 Drug: Ibuprofen PO 800 mg Route: PO; rv 21:41 Follow up: Response: Medication administered at discharge. rv 21:40 Drug: Acetaminophen PO 1000 mg Route: PO; rv 21:40 Follow up: Response: Medication administered at discharge. rv 21:40 Drug: diphenhydrAMINE PO 25 mg Route: PO; rv 21:40 Follow up: Response: Medication administered at discharge. rv Medication: 21:43 VIS not applicable for this client. rv Outcome: 21:20 Discharge ordered by . sp4 21:43 Discharged to home ambulatory. rv 21:43 Condition: good 21:43 Discharge instructions given to patient, Instructed on discharge instructions, follow up and referral plans. medication usage, Demonstrated understanding of instructions, follow-up care, medications, Prescriptions given X 3. 21:43 Patient left the ED. rv Signatures: Netta Lewis RN RN kl Vicente, Ronaldo RN Karly Steel Sergey, MD MD sp4 Corrections: (The following items were deleted from the chart) 21:10 21:10 PSHx: Appendectomy; brianne decker
--- NOTE | 2022-10-04 21:22 | EDPHYS ---
Physician Documentation [facility] Name: Subhash Mccracken Age: 32 yrs Sex: Male : 1990 Arrival Date: 10/04/2022 Time: 20:54 Bed 10 Private MD: ED Physician Rusty Gomes HPI: 10/04 20:58 This 32 yrs old Male presents to ER via Unassigned with complaints of Eye sp4 Problem. 21:18 This 32 yrs old Male presents to ER via Ambulatory with complaints of Eye sp4 Problem. 21:18 32-year-old male presents with left eye pain and irritation for the past 2 days. sp4 Patient states it has been worsening with respect to irritation causing additional pain and eye tearing. Patient suspects there is a metal foreign body in it . Historical: - Allergies: 21:10 No Known Allergies; kl - Home Meds: 21:10 None [Active]; kl - PMHx: 21:10 None; kl - PSHx: 21:10 None; kl - Immunization history:: Adult Immunizations not immunized. - Social history:: Smoking status: Patient denies any tobacco usage or history of. - Family history:: not pertinent. ROS: 10/05 02:39 Constitutional: Negative for fever, chills, and weight loss, Eyes: Negative for injury, sp4 positive for left eye pain, left eye redness, left eye irritation, and tearing. Negative for right eye complaint All other systems are negative. Exam: 02:39 Constitutional: This is a well developed, well nourished patient who is awake, alert, sp4 and in no acute distress. Head/Face: Normocephalic, atraumatic. Eyes: Pupils equal round and reactive to light, extra-ocular motions intact. Right eye exam is unremarkable. Left eye examination reveals mild swelling of her left upper eyelid, left conjunctival erythema, right corneal abrasion , right corneal abrasion located at the 2 O'clock at the left cornea which was noted with fluorescein exam. Patient now reports improvement after tetracaine eyedrops. No corneal or conjunctival foreign body visualized. Eyelids everted and there is no foreign body visualized under the eyelids. Extraocular eye movements intact, visual acuity normal bilaterally. ENT: Nares patent. No nasal discharge, no septal abnormalities noted. Tympanic membranes are normal and external auditory canals are clear. Oropharynx with no redness, swelling, or masses, exudates, or evidence of obstruction, uvula midline. Mucous membranes moist. Neck: Trachea midline, no thyromegaly or masses palpated, and no cervical lymphadenopathy. Supple, full range of motion without nuchal rigidity, or vertebral point tenderness. Chest/axilla: Normal chest wall appearance and motion. Nontender with no deformity. No lesions are appreciated. Cardiovascular: Regular rate and rhythm with a normal S1 and S2. No gallops, murmurs, or rubs. Normal PMI, no JVD. No pulse deficits. Respiratory: Lungs have equal breath sounds bilaterally, clear to auscultation and percussion. No rales, rhonchi or wheezes noted. No increased work of breathing, no retractions or nasal flaring. Abdomen/GI: Soft, non-tender, with normal bowel sounds. No distension or tympany. No guarding or rebound. No evidence of tenderness throughout. Back: No spinal tenderness. No costovertebral tenderness. Male : Normal genitalia with no discharge or lesions. Skin: Warm, dry with normal turgor. Normal color with no rashes, no lesions, and no evidence of cellulitis. MS/ Extremity: Pulses equal, no cyanosis. Neurovascular intact. Full, normal range of motion. Neuro: Awake and alert, GCS 15, oriented to person, place, time, and situation. Cranial nerves II-XII grossly intact. Motor strength 5/5 in all extremities. Sensory grossly intact. Psych: Awake, alert, with orientation to person, place and time. Behavior, mood, and affect are within normal limits Vital Signs: 10/04 21:09 BP 132 / 89; Pulse 93; Resp 18; Temp 97(TE); Pulse Ox 98% on R/A; Weight 99.79 kg (R); kl Height 5 ft. 8 in. ; Pain 7/10; 21:09 Body Mass Index 33.45 (99.79 kg, 172.72 cm) kl 21:09 Pain Scale: Adult kl MDM: 21:19 ED course: By exam patient has left corneal abrasion and also unusual type lesion that sp4 may appear like dendritic type lesion. We will see about treating with Vigamox eyedrops secondary to contact lens wearing and also will prescribe acyclovir containing eyedrops . . 21:20 Patient medically screened. sp4 10/05 02:39 Data reviewed: vital signs, nurses notes. ED course: There is corneal abrasion of the sp4 left eye. Patient will be prescribed moxifloxacin eyedrops. Since corneal abrasion looks reminiscent of dendritic lesions that could be present with herpes keratitis patient will be prescribed p.o. acyclovir for the next 10 days. Mother advised lubricant eyedrops for relief of the redness. Advised follow-up with elevated guard patient states his follow-up is actually tomorrow with his company his elevated guard. . 10/04 21:29 Order name: Eye Tray; Complete Time: 21:34 sp4 10/04 21:29 Order name: Fluoresene Opth strip; Complete Time: 21:33 sp4 Administered Medications: 10/04 21:34 Drug: Tetracaine Ophthalmic Drops 0.5 % 1 drops Route: Ophthalmic; Site: left eye; kl 21:41 Follow up: Response: No adverse reaction rv 21:40 Drug: Ibuprofen PO 800 mg Route: PO; rv 21:41 Follow up: Response: Medication administered at discharge. rv 21:40 Drug: Acetaminophen PO 1000 mg Route: PO; rv 21:40 Follow up: Response: Medication administered at discharge. rv 21:40 Drug: diphenhydrAMINE PO 25 mg Route: PO; rv 21:40 Follow up: Response: Medication administered at discharge. rv Disposition Summary: 10/04/22 21:20 Discharge Ordered Location: Home sp4 Problem: new sp4 Symptoms: have improved sp4 Condition: Stable sp4 Diagnosis - Injury of conjunctiva and corneal abrasion without foreign body, left eye sp4 - Unspecified acute conjunctivitis, left eye sp4 Followup: sp4 - With: Subhash Godfrey MD - When: 5 - 6 days - Reason: Recheck today's complaints Discharge Instructions: - Discharge Summary Sheet sp4 - How to Use Eye Drops and Eye Ointments sp4 Forms: - [email or web address] sp4 Prescriptions: - moxifloxacin 0.5 % Ophthalmic drops - instill 1 drop by OPHTHALMIC route every 4 hours for 7 days; 3 milliliter; sp4 Refills: 0, Product Selection Permitted - Ibuprofen 600 mg Oral Tablet - take 1 tablet by ORAL route every 6 hours As needed take with food; 30 tablet; sp4 Refills: 0, Product Selection Permitted - Acyclovir 800 mg Oral Tablet - take 1 tablet by ORAL route 4 times per day for 10 days Prophylaxis for Left sp4 eye infection; 40 tablet; Refills: 0, Product Selection Permitted Signatures: Netta Lewis RN RN kl Vicente, Ronaldo, RN RN rv Potepalov, Sergey, MD MD sp4 Corrections: (The following items were deleted from the chart) 21:10 21:10 PSHx: Appendectomy; brianne decker
[2022-10-04] MEDS ORDERED: DIPHENHYDRAMINE 25 MG TAB/CAP ONE (21:41)
[2022-10-04] MEDS ORDERED: IBUPROFEN 400 MG TAB ONE (21:42)
[2022-10-04] MEDS ORDERED: ACETAMINOPHEN 500 MG TAB ONE (21:42)
[2022-10-04 21:48] VITALS: BP 132/89; TEMP 97; O2SAT 98
== END 2022-10-04 21:43 | disposition home or self-care (01) ==
LOC: ER 20:54
DX: S05.02XA Injury of conjunctiva and corneal abrasion without foreign body, left eye, initial encounter (principal); H10.32 Unspecified acute conjunctivitis, left eye
CPT/HCPCS: 99283